=== PATIENT | male | born 1940 | race Caucasian/White ===

== ENCOUNTER → 2016-07-11 | Day surgery (SDC) | payer BC ==
[~2016-07-11] VITALS: Ht 176.5 cm; Wt 86.5 kg
[~2016-07-11] MED LIST: ASPI81TA28 PO; CHOL1000 PO; CLINDAMYCIN 600 MG/54 ML D5W IV SCH; CYAN100020 PO; EZET10TA47 PO; FENO145T26 PO; FENTANYL CITRATE INJ 50 MCG/1 ML 2 ML VIAL IV ONE; FENTANYL CITRATE INJ 50 MCG/1 ML 2 ML VIAL ONE; HYDR-5688 PO; LIDOCAINE HCL 1% 20 ML VIAL INJ ONE; LIDOCAINE HCL 1% 20 ML VIAL ONE; LPR25 PO; MIDAZOLAM HCL 1 MG/ML 2ML VIAL IV ONE; MIDAZOLAM HCL 1 MG/ML 2ML VIAL ONE; OMEG10007 PO; SODIUM CHLORIDE 0.9% 1000ML 1,000 ML IV SCH; TAMS0.4C38 PO
[2016-07-11 06:43] VITALS: BP 146/68; PULSE 54; TEMP 37; O2SAT 96; Ht 176.5 cm; Wt 86.5 kg
[2016-07-11 07:34] LABS: CREATININE 1.2 mg/dl (0.60-1.40)
--- NOTE | 2016-07-11 07:38 | Procedure Note ---
Pre-Mod Sedation Assessment General Date of Moderate Sedation: Jul 11, 2016. Vital Signs: Vital Signs Past 12 Hours Date Time Temp Pulse Resp B/P Pulse Ox O2 Delivery O2 Flow Rate FiO2 07/11/16 06:43 37 54 20 146/68 96 Room Air Pre-Sedation Airway Assessment Smoking Status: Former Smoker Mallampati Classification: Class I ASA Classification: Class II Notes The planned sedation has been discussed with the patient and consent obtained. I have identified the patient, determined the appropriateness of sedation and have assessed the patient immediately prior to the procedure. All medicine(s) and interventions are by my order.
--- NOTE | 2016-07-11 07:38 | History and Physical ---
History & Physical CC: Post infusaport HPI: Mr. 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 The patient states that he never had any problems or concerns with the port and only ever had to have this single one inserted. He states that after completing treatment they did continue to maintain the port by flushing it on a regular basis until last month. The patient states that he went to the surgical center to have his port removed by Dr. Dany Lombardi who unfortunately ran into significant complications of scarring which did not allow him to remove the port. Patient states he was then referred to us to have this port removed. The patient denies any complaints at this time including fevers, chills, headaches, nausea, vomiting, chest pain, shortness of breath, abdominal pain, rest pain, claudication, healing wounds or ulcers. He does state having some neuropathy particularly in his right leg from his old bone marrow harvesting. ALLERGIES: LIPITOR, PENICILLIN, SPIRONOLACTONE AND TRILIPIX. HOME MEDICATIONS: Reconciled in the chart and include the following: Aspirin 81 mg, Centrum Silver, fenofibrate 145 mg, fish oil ultra 1000 mg, metoprolol, tamsulosin 0.4 mg, vitamin D3 1000 units, Voltaren 1% topical gel and Zetia 10 mg. PAST MEDICAL HISTORY: Arthritis, BPH, coronary artery disease, gastroesophageal reflux, testicular cancer, hypercholesterolemia, hypertension, peripheral neuropathy, TIA, vertigo, vitamin B deficiency, vitamin D deficiency and non-Hodgkin's lymphoma. PAST SURGICAL HISTORY: Cataract surgery, left orchiectomy, axillary lymph node removal, tonsillectomy and left total knee arthroplasty. FAMILY HISTORY: Positive for diabetes mellitus, heart attack, heart disease and prostate carcinoma. SOCIAL HISTORY: Positive for a past history of tobacco use. Patient quit smoking in 1980. He does continue to have an occasional alcoholic beverage approximately 6 per week. REVIEW OF SYSTEMS: Negative for fatigue, fevers, sweats, weight loss, exercise intolerance, abnormal moles or rashes, vision changes, photophobia, ear pain, sinus problems or sore throat, cough, shortness of breath, hemoptysis or wheezing, chest pain, palpitations, edema or syncope, abdominal pain, nausea, vomiting, diarrhea, constipation, dysuria, hematuria, muscle weakness, headaches , dizziness or seizures. He is positive for some occasional numbness and twinges of discomfort in his right leg. PHYSICAL EXAMINATION: Vital signs: Blood pressure 142/90 in the right arm, 150 /90 in the left arm, heart rate 63, O2 sat 98% on room air. The patient is 175 cm tall and weighs 87.7 kg. Constitutional: In general, patient is a mildly chronically ill-appearing elderly male in no acute distress. He ambulates slowly without assistance and is active, alert and oriented x4 with normal recent and remote memory. Head is normocephalic and atraumatic. Eyes are EOMI. ENT exam demonstrates no hearing loss, rhinorrhea or pharyngeal erythema. Neck is supple, nontender with midline trachea without masses or crepitus. Lung exam demonstrates no dyspnea. They are clear to auscultation bilaterally. Cardiovascular exam demonstrates a nondisplaced apical impulse with a regular rate and rhythm without murmurs, lifts, heaves, thrills or gallops. Peripheral pulses are full and equal in all extremities unless otherwise noted. They are normal in his carotid, brachial, radial and femoral pulses. Extremities: Distal pulses are +2. He has brisk capillary refill, no sign of distal ischemia. The patient demonstrates no bruits in his carotid, abdominal or femoral area. Abdomen is soft, nontender with normoactive bowel sounds in all 4 quadrants without guarding or rebound. There is no flank or CVA tenderness. Musculoskeletal exam demonstrates normal tone and strength for age. Bilateral upper extremities demonstrate no cyanosis, edema, clubbing, varicosities or ulcers. Bilateral lower extremities demonstrate no cyanosis, edema, clubbing, varicosities or ulcers. Neurologically, patient has grossly intact cranial nerves and grossly intact sensation. His left chest does demonstrate his Infusaport which is lateral and almost axillary in location. His previous attempt at removal incision is well-healed. There is no tenderness , swelling or discharge. Chest x-ray from 2014 was reviewed which shows the location of his catheter as being subclavicular. According to the op report from the placement which was in 2006, this was a left cephalic vein catheter placement. ASSESSMENT: History of non-Hodgkin's lymphoma. Post port insertion PLAN: Patient admitted for removal of his infusaport. The procedure, risks, benefits and alternatives to it were discussed with the patient. He expressed understanding and agreement to proceed.
--- NOTE | 2016-07-11 08:49 | Procedure Note ---
Post-Moderate Sedation Plan General Date of Moderate Sedation Jul 11, 2016. Vital Signs: Vital Signs Past 12 Hours Date Time Temp Pulse Resp B/P Pulse Ox O2 Delivery O2 Flow Rate FiO2 07/11/16 06:43 37 54 20 146/68 96 Room Air Review - Discharge Plan Post Moderate Sedation Plan: On clinical assessment, the patient appears to have tolerated the conscious sedation without complications. Patient is recovering as anticipated. Patient will continue to be monitored by nursing and may be discharged when conscious sedation discharge criteria are met.
--- NOTE | 2016-07-11 08:53 | [facility] Post Operative Brief Note ---
Immediate Operative Summary Operative Date Jul 11, 2016. Pre-Operative Diagnosis post infusaport Post-Operative Diagnosis same Procedure(s) Performed Removal of Infusaport, Moderate Concious Sedation [id number] Thapa Wood Scaler Surgeon(s) none Estimated Blood Loss 10 ml Findings Entire port and catheter removed Specimens A. explanted infusaport Anesthesia Local with moderate sedation Complication(s) None Disposition
--- NOTE | 2016-07-11 08:59 | Discharge Instructions ---
Discharge Instructions Visit Reason for Visit: Non-Hodgkin's Lymphoma Discharge Discharge Diagnosis / Problem: Post infusaport Discharge Goals Goal(s): Therapeutic intervention Activity Recommendations Activity Limitations: per Instructions/Follow-up section Anesthesia . Post Anesthesia Instructions: If you have had General Anesthesia or IV Sedation: * Do not drive today. * Resume driving when surgeon permits. * Do not make important decisions or sign legal documents today. * Call surgeon for: 1. Temperature elevations greater than 101 degrees F. 2. Uncontrollable pain. 3. Excessive bleeding. 4. Persistent nausea and vomiting. 5. Medication intolerance (nausea, vomiting or rash). * For nausea and vomiting use only clear liquids such as: tea, soda, bouillon until nausea subsides, then gradually increase diet as tolerated. * If you have any concerns or questions, call your surgeon's office. If physician is unavailable and it is an emergency, call 911 or go to the nearest emergency room. . Instructions / Follow-Up Instructions / Follow-Up Call [phone] to schedule a follow up appointment if one not already scheduled. ACTIVITY RECOMMENDATIONS: See Above SPECIAL CARE INSTRUCTIONS: Call your doctor if: * Temperature above 101 degrees * Pain not relieved by pain medicine ordered * There is increased drainage or redness from any incision * You have any unanswered questions or concerns. Diet Recommendations Recommended Home Diet: resume previous diet Procedures Procedures Performed: Removal of Infusaport, Moderate Concious Sedation [id number] Pending Studies Studies pending at discharge: no Medical Emergencies . Who to Call and When: Medical Emergencies: If at any time you feel your situation is an emergency, please call 911 immediately. . Non-Emergent Contact Non-Emergency issues call your: Surgeon . . "Provider Documentation" section prepared by Santosh Thapa.
[2016-07-11 09:05] VITALS: BP 117/69; PULSE 55; TEMP 36.6; O2SAT 96
[2016-07-11 09:35] VITALS: BP 110/59; PULSE 63; TEMP 36.4; O2SAT 95
--- NOTE | 2016-07-15 08:08 | DIAGNOSTIC IMAGING REPORT ---
DATE OF PROCEDURE: 07/11/2016 DATE OF PROCEDURE: 07/11/2016. PREOPERATIVE DIAGNOSIS: Post Infusaport insertion for Hodgkins. POSTOPERATIVE DIAGNOSIS: Same. PROCEDURE: 1. Removal of Infusaport. 2. Conscious sedation 34 minutes total, start time 0808 to 0842. SURGEON: Dr. Thapa. ANESTHETIC: Local with moderate conscious sedation. PROCEDURE INDICATIONS: The patient is a 76-year-old gentleman who had an Infusaport placed approximately 10 years prior to this. An attempt was made to remove it by another physician a few weeks earlier. It could not be removed and the patient was referred here for removal of the port. We discussed the options of open removal with combination of endovascular removal. He understood the risks, options and benefits and agreed to have this procedure. The patient was taken to the angio suite and placed in supine position. After the area was prepped and draped in a sterile manner, local anesthetic was administered in line of the old incision. The old incision was opened. The port was identified. The port well was freed up. The catheter did have a lot of resistance and would not slide out. We did do a counterincision at the subclavian just below in the infraclavicular area, being that it was a subclavian entrance. This was carried down to between the muscle bellies until the catheter was found. Catheter was then pulled up into the wound. The fibrin sheath around it was incised. Gentle traction was then applied and the catheter slid out fairly easily. Pressure was applied to the puncture site along with Joyce for the wound. The rest of the catheter and port were removed from the original incision. After adequate hemostasis was obtained in both wounds, both wounds were closed with running 3-0 Vicryl for the subcutaneous layer and running 4-0 subcuticular suture for the skin edges. Dermabond was used for a dressing. The patient left the angio suite in good condition and tolerated the procedure well.
== END | disposition home or self-care (01) ==
LOC: C.ACU 06:04
PROVIDERS: ATTEND Surgery Vascular Surgery
DX: C85.80 Other specified types of non-Hodgkin lymphoma, unspecified site (principal); I25.10 Atherosclerotic heart disease of native coronary artery without angina pectoris; K21.9 Gastro-esophageal reflux disease without esophagitis; Z85.47 Personal history of malignant neoplasm of testis; E78.00 Pure hypercholesterolemia, unspecified; I10 Essential (primary) hypertension; Z86.73 Personal history of transient ischemic attack (TIA), and cerebral infarction without residual deficits; N40.0 Benign prostatic hyperplasia without lower urinary tract symptoms; Z98.49 Cataract extraction status, unspecified eye; Z88.0 Allergy status to penicillin; Z98.890 Other specified postprocedural states; Z90.89 Acquired absence of other organs; Z96.652 Presence of left artificial knee joint; Z87.891 Personal history of nicotine dependence; Z83.3 Family history of diabetes mellitus; Z82.49 Family history of ischemic heart disease and other diseases of the circulatory system; Z80.42 Family history of malignant neoplasm of prostate

== ENCOUNTER → 2017-04-27 | Outpatient (CLI) | payer BC ==
[~2017-04-27] MED LIST changes: -CLINDAMYCIN 600 MG/54 ML D5W IV SCH; -FENTANYL CITRATE INJ 50 MCG/1 ML 2 ML VIAL IV ONE; -FENTANYL CITRATE INJ 50 MCG/1 ML 2 ML VIAL ONE; -LIDOCAINE HCL 1% 20 ML VIAL INJ ONE; -LIDOCAINE HCL 1% 20 ML VIAL ONE; -MIDAZOLAM HCL 1 MG/ML 2ML VIAL IV ONE; -MIDAZOLAM HCL 1 MG/ML 2ML VIAL ONE; -SODIUM CHLORIDE 0.9% 1000ML 1,000 ML IV SCH
[2017-04-27 11:02] LABS: BASO ABS # 0.05 K/uL (0-0.2); COMPLETE YES; EOS % 2.3 %; HEMATOCRIT 40.9 % (42-52); IG% 0.2 %; LYMPH % 40.7 %; LYMPH ABS # 2.11 K/uL (1.2-3.4); MEAN CELL VOLUME 97.1 fL (80-100); MEAN PLATELET VOLUME 11.1 fL (7.4-10.4); MONO % 12.7 %; NEUT % 43.1 %; PLATELET COUNT 159 K/uL (130-400); RED BLOOD COUNT 4.21 M/uL (4.7-6.1); WHITE BLOOD COUNT 5.18 K/uL (4.8-10.8)
[2017-04-27 11:25] LABS: ALT/SGPT 26 U/L (12-78); BLOOD UREA NITROGEN 23 mg/dl (7-18); BUN/CREATININE RATIO 20.3 (10-20); CALCIUM 9.4 mg/dl (8.5-10.1); CARBON DIOXIDE 27 mmol/L (21-32); CHLORIDE 108 mmol/L (98-107); CREATININE 1.15 mg/dl (0.60-1.40); GLUCOSE 100 mg/dl (70-99); POTASSIUM 4.8 mmol/L (3.5-5.1); SODIUM 142 mmol/L (136-145)
[2017-04-27 11:28] LABS: CHOLESTEROL 169 mg/dl (0-200); CHOLESTEROL/HDL RATIO 3.1; HDL CHOLESTEROL 55 mg/dl; LDL CHOLESTEROL CALCULATED 57 mg/dl; TRIGLYCERIDES 284 mg/dl (0-150); VERY LOW DENSITY LIPOPROT CALC 57 mg/dl
== END | disposition home or self-care (01) ==
LOC: C.LABBC 07:37
PROVIDERS: ATTEND Family Medicine
DX: I10 Essential (primary) hypertension (principal); E78.00 Pure hypercholesterolemia, unspecified; C85.90 Non-Hodgkin lymphoma, unspecified, unspecified site

== ENCOUNTER → 2017-11-19 | Outpatient (CLI) | payer BC ==
[2017-11-19 11:43] LABS: ALT/SGPT 23 U/L (12-78); BLOOD UREA NITROGEN 25 mg/dl (7-18); CALCIUM 9.2 mg/dl (8.5-10.1); CARBON DIOXIDE 29 mmol/L (21-32); CHOLESTEROL 166 mg/dl (0-200); CREATININE 1.28 mg/dl (0.60-1.40); GLUCOSE 100 mg/dl (70-99); LDL CHOLESTEROL CALCULATED 57 mg/dl; POTASSIUM 4.1 mmol/L (3.5-5.1); SODIUM 137 mmol/L (136-145)
== END | disposition home or self-care (01) ==
LOC: C.LABBC 07:35
PROVIDERS: ATTEND Family Medicine
DX: I25.10 Atherosclerotic heart disease of native coronary artery without angina pectoris (principal); I10 Essential (primary) hypertension; E78.00 Pure hypercholesterolemia, unspecified

== ENCOUNTER 2022-03-10 14:24 | Inpatient (IN) ==
[2022-03-10] MEDS ORDERED: CEFEPIME 2,000 MG/20 ML VIAL IV STA (15:05)
--- NOTE | 2022-03-10 15:08 | Emergency Department Note ---
History of Present Illness General Chief complaint: Respiratory Problems Stated complaint: PNEUMONIA/SOB Time Seen by Provider: 03/10/22 14:54 History of Present Illness Maximum Pain Intensity: 0 81-year-old male presents to the ED with a chief complaint of shortness of breath that is worse with exertion. He states that he was diagnosed with a viral pneumonia on . He was started on a Z-Manfred and finished his last dose today. Denies any sick contacts. He states that he does not use home oxygen. He has monitored his pulse ox at home and has been at the lowest around 86 and high of 91. The patient states that his was recently diagnosed with COVID but he tested negative. The patient denies any chest pains or fevers or cough. At the onset of his original symptoms, he was having exertional dyspnea, fatigue and minimal cough. Home Medications Medication Instructions Recorded Confirmed Type hydrocortisone 2.5 % topical cream 1 applic PA DAILY PRN itching #30 11/19/20 03/10/22 Rx with perineal applicator grams (Proctosol HC) multivitamin 1 tab PO DAILY 11/19/20 03/10/22 History metoprolol tartrate 25 mg tablet See Rx Instructions PO BID #270 10/25/21 03/10/22 Rx tabs fenofibrate nanocrystallized 145 145 mg PO DAILY #90 tabs 11/13/21 03/10/22 Rx mg tablet tamsulosin 0.4 mg capsule 0.4 mg PO QPM #90 caps 12/06/21 03/10/22 Rx loratadine 10 mg tablet (Claritin) 10 mg PO DAILY #30 tabs 12/10/21 03/10/22 Rx lisinopril 10 mg tablet 10 mg PO DAILY #90 tabs 01/22/22 03/10/22 Rx azithromycin 250 mg tablet See Rx Instructions PO .COMPLEX #6 03/06/22 03/10/22 Rx tabs ezetimibe 10 mg tablet 10 mg PO DAILY 03/10/22 03/10/22 History Allergies Allergy/AdvReac Type Severity Reaction Status Date / Time house dust mite Allergy Unknown Sneezing Verified 03/10/22 16:53 atorvastatin AdvReac Intermediate MUSCLE Verified 03/10/22 16:53 CRAMPS choline fenofibrate AdvReac Intermediate MUSCLE Verified 03/10/22 16:53 CRAMPS spironolactone AdvReac Intermediate MUSCLE Verified 03/10/22 16:53 CRAMPS Penicillins AdvReac Unknown AVOIDS Verified 03/10/22 16:53 HIS FATHER HIGHLY ALLERGIC pollen Allergy Unknown Sneezing Uncoded 03/10/22 16:53 Past Med/Surg History Medical History Aldosteronism Arthritis Benign paroxysmal positional vertigo Benign prostatic hyperplasia with urinary obstruction Bilateral primary osteoarthritis of knee Bursitis of right hip Cor athrscl-uns vessel Degenerative arthritis of left knee Esophageal reflux External hemorrhoids without mention of complication GERD (gastroesophageal reflux disease) History of testicular cancer HTN, goal below 140/90 Hyperlipidemia Impaired fasting glucose Lumbar spondylosis Non Hodgkin's lymphoma Peripheral neuropathy Sensorineural hearing loss (SNHL) of both ears Sensorineural hearing loss (SNHL) of both ears TIA (transient ischemic attack) Vitamin B12 deficiency Vitamin D deficiency Surgical History History of cataract surgery History of left knee replacement History of orchiectomy, unilateral left History of tonsillectomy History of total knee arthroplasty (08/14/15) left History of vasectomy S/P skin cancer resection Family History Mother Diabetes Heart disease Hypertension Father Prostate cancer Other Cancer Family history non-contributory No family history of allergies No family history of bleeding disorder Denies family history of Ovarian cancer Hearing loss Myocardial infarction Breast cancer Colorectal cancer Stroke Asthma Social History Smoking Status: Former smoker Tobacco Type: Cigarettes Age Quit Using Tobacco: 52; packs per day: 1; Years Smoked: 7; Second Hand Exposure: No; Hx Alcohol Use: Yes Alcohol type: hard liquor Alcohol Intake Frequency: Monthly or Less Hx Substance Use: No Preferred Language: Tongan Communication Ability: Effective Visual Impairment: No Limitations Hearing Ability: Use of Hearing Aid marital status: Current Living Situation: Spouse current occupational status: retired Feels Safe at Home: Yes Childhood Exposure to Second-Hand Smoke: Yes caffeine: Yes during the past year weight has: remained stable Dental Care, Regularly: Yes Physical Activity Frequency: 3-4 Times per Week Seatbelt Use: always Sunscreen Use: Yes Assistive Devices: Glasses and Hearing Aid - Bilateral Review of Systems A total of 10 systems reviewed and were otherwise negative Physical Exam Vital Signs Vital Signs - 24 hr 03/10/22 14:39 03/10/22 14:52 03/10/22 14:24 Temperature 36.1 C L Temperature Source Temporal Artery Scan Pulse Rate 72 Pulse Rate [Apical] Pulse Rhythm Pulse Rhythm [Apical] Pulse Strength [Apical] Respiratory Rate 24 Respiratory Effort / Characteristics Labored Non-Labored Spontaneous Respiratory Depth Normal Respiratory Pattern Regular Blood Pressure 109/70 Blood Pressure [Left Arm] Blood Pressure Mean 83 Blood Pressure Mean [Left Arm] Blood Pressure Position [Left Arm] Pulse Oximetry 87 L 79 L Oxygen Delivery Method Room Air Room Air Nasal Cannula Oxygen Flow Rate 2 Sepsis Recent Fever Within 48 Hours No Sepsis New/Unexplained Change in Mental Status N/A Sepsis Action Taken by Nursing No Action Required Oxygen Flow Rate - Titration Pulse Oximetry Post Tiitration 03/10/22 14:24 03/10/22 14:24 03/10/22 15:05 Temperature Temperature Source Pulse Rate Pulse Rate [Apical] 69 Pulse Rhythm Pulse Rhythm [Apical] Regular Pulse Strength [Apical] Normal Respiratory Rate 22 24 Respiratory Effort / Characteristics Non-Labored Non-Labored Spontaneous Respiratory Depth Normal Respiratory Pattern Regular Blood Pressure Blood Pressure [Left Arm] 110/67 Blood Pressure Mean Blood Pressure Mean [Left Arm] 81 Blood Pressure Position [Left Arm] Lying Pulse Oximetry 79 L 95 95 Oxygen Delivery Method Room Air Nasal Cannula Room Air Nasal Cannula Oxygen Flow Rate 0 2 2 Sepsis Recent Fever Within 48 Hours Sepsis New/Unexplained Change in Mental Status Sepsis Action Taken by Nursing Oxygen Flow Rate - Titration 2 Pulse Oximetry Post Tiitration 95 03/10/22 15:05 Temperature Temperature Source Pulse Rate 66 Pulse Rate [Apical] Pulse Rhythm Regular Pulse Rhythm [Apical] Pulse Strength [Apical] Respiratory Rate 22 Respiratory Effort / Characteristics Respiratory Depth Respiratory Pattern Blood Pressure Blood Pressure [Left Arm] Blood Pressure Mean Blood Pressure Mean [Left Arm] Blood Pressure Position [Left Arm] Pulse Oximetry 95 Oxygen Delivery Method Nasal Cannula Oxygen Flow Rate 2 Sepsis Recent Fever Within 48 Hours Sepsis New/Unexplained Change in Mental Status Sepsis Action Taken by Nursing Oxygen Flow Rate - Titration Pulse Oximetry Post Tiitration CONSTITUTIONAL/VITAL SIGNS: Reviewed / noted above. GENERAL: Non-toxic in appearance. INTEGUMENTARY: Warm, dry, and Babbie. HEAD: Normocephalic. EYES: without scleral icterus or trauma. ENT/OROPHARYNX: clear and moist. LYMPHADENOPATHY/NECK: Is supple without lymphadenopathy or meningismus. RESPIRATORY: Clear to auscultation bilaterally. No increased work of breathing. CARDIOVASCULAR: Regular rate and rhythm. GI/ABDOMEN: Soft and nontender. No organomegaly or pulsatile mass. EXTREMITIES: Warm and well perfused. BACK: No CVA tenderness. NEUROLOGICAL: Intact without focal deficits. PSYCHIATRIC: normal affect. MUSCULOSKELETAL: Normally developed with good muscle tone. TRIAGE NURSING DOCUMENTATION REVIEWED. Course Administered Medications Discontinued Medications Cefepime HCl (Maxipime) 2,000 mg in 20 mls @ 5 mls/min IV NOW STA; Protocol Stop: 03/10/22 15:08 Last Admin: 03/10/22 15:26 Dose: 5 mls/min Documented By: ROSEMARIE Ioversol (Optiray 300 500ml) 118 ml IV ONCE ONE Stop: 03/10/22 17:04 Last Admin: 03/10/22 17:05 Dose: 118 ml Documented By: [facility] Medical Decision Making Differential Diagnosis The differential was considered includes acute myocardial infarction, acute coronary syndrome, myocarditis, pericarditis, pericardial effusions /tamponad, esophageal perforation, pulmonary embolism, pneumonia, pneumothorax, cardiomyopathy, congestive heart, anemia , COPD/asthma exacerbation. Medical Records Attestation: I reviewed the patient's medical records. Home Medications Current Medication List: was personally reviewed by me Laboratory Data Attestation: I reviewed the patient's lab results. Result diagrams: 03/10/22 15:50 03/10/22 15:50 Lab Results 03/10/22 03/10/22 03/10/22 Range/Units 15:50 15:50 15:50 WBC 6.44 (4.8-10.8) K/ul RBC 4.01 L (4.63-6.08) M/uL Hgb 12.9 L (14.0-18.0) g/dl Hct 38.6 L (40.1-51.0) % MCV 96.3 (80.0-100.0) fL MCH 32.2 (25.0-34.0) pg MCHC 33.4 (32.0-36.0) g/dL RDW Std Deviation 47.6 H (36.4-46.3) fL RDW Coeff of Jeffrey 13.2 (11.5-14.5) % Plt Count 236 (130-400) K/uL MPV 10.4 (9.4-12.4) fL Immature Gran % (Auto) 0.3 % Neut % (Auto) 54.8 % Lymph % (Auto) 26.4 % Potter % (Auto) 15.4 % Eos % (Auto) 2.2 % Baso % (Auto) 0.9 % Neut # (Auto) 3.53 (1.4-6.5) K/uL Lymph # (Auto) 1.70 (1.2-3.4) K/uL Potter # (Auto) 0.99 H (0.24-0.82) K/uL Eos # (Auto) 0.14 (0-0.50) K/uL Baso # (Auto) 0.06 (0-0.2) K/uL Immature Gran # (Auto) 0.02 (0.00-0.02) K/uL PT 11.2 (9.0-12.0) Seconds INR 1.1 (0.9-1.1) APTT 27.4 (21.0-31.0) Seconds PTT Ratio 1.0 D-Dimer 740 H* (0-500) ug/L FEU Sodium 136 (136-145) mmol/L Potassium 4.1 (3.5-5.1) mmol/L Chloride 104 (98-107) mmol/L Carbon Dioxide 24 (21-32) mmol/L Anion Gap 8 (3-11) BUN 23 (6-23) mg/dl Creatinine 1.38 (0.6-1.4) mg/dl Est Cr Clr Drug Dosing 42.7 ml/min Est GFR ( Amer) 55.6 ml/min Est GFR (Non-Af Amer) 47.9 ml/min BUN/Creatinine Ratio 16.7 (10-20) Glucose 96 (70-99(Fasting)) mg/dl Lactate (0.4-2.0) mmol/L Calcium 9.5 (8.5-10.1) mg/dl Magnesium 2.0 (1.7-2.4) mg/dl Total Bilirubin 0.4 (0.2-1.0) mg/dl AST 19 (13-39) U/L ALT 12 (7-52) U/L Alkaline Phosphatase 33 L (34-104) U/L Troponin I High Sens 6.4 (0-20) pg/ml Total Protein 6.8 (6.0-8.3) gm/dl Albumin 3.6 (3.4-5.0) gm/dl Globulin 3.2 (2.5-4.0) gm/dl Albumin/Globulin Ratio 1.1 (0.9-2) Adenovirus (PCR) (NotDetected) B. pertussis DNA (PCR) (NotDetected) B.parapertussis DNA PCR (NotDetected) C. pneumoniae DNA (PCR) (NotDetected) Coronavirus OC43 (PCR) (NotDetected) Coronavirus HKU1 (PCR) (NotDetected) Coronavirus 229E (PCR) (NotDetected) SARS-CoV-2 (PCR) (NotDetected) Coronavirus NL63 (PCR) (NotDetected) Human Metapneumovir PCR (NotDetected) Influenza Type A (PCR) (NotDetected) Influenza Type B (PCR) (NotDetected) M. pneumoniae (PCR) (NotDetected) Parainfluenza 1 (PCR) (NotDetected) Parainfluenza 2 (PCR) (NotDetected) Parainfluenza 3 (PCR) (NotDetected) Parainfluenza 4 (PCR) (NotDetected) RSV (PCR) (NotDetected) Entero/Rhino (PCR) (NotDetected) 03/10/22 03/10/22 Range/Units 15:50 15:50 WBC (4.8-10.8) K/ul RBC (4.63-6.08) M/uL Hgb (14.0-18.0) g/dl Hct (40.1-51.0) % MCV (80.0-100.0) fL MCH (25.0-34.0) pg MCHC (32.0-36.0) g/dL RDW Std Deviation (36.4-46.3) fL RDW Coeff of Jeffrey (11.5-14.5) % Plt Count (130-400) K/uL MPV (9.4-12.4) fL Immature Gran % (Auto) % Neut % (Auto) % Lymph % (Auto) % Potter % (Auto) % Eos % (Auto) % Baso % (Auto) % Neut # (Auto) (1.4-6.5) K/uL Lymph # (Auto) (1.2-3.4) K/uL Potter # (Auto) (0.24-0.82) K/uL Eos # (Auto) (0-0.50) K/uL Baso # (Auto) (0-0.2) K/uL Immature Gran # (Auto) (0.00-0.02) K/uL PT (9.0-12.0) Seconds INR (0.9-1.1) APTT (21.0-31.0) Seconds PTT Ratio D-Dimer (0-500) ug/L FEU Sodium (136-145) mmol/L Potassium (3.5-5.1) mmol/L Chloride (98-107) mmol/L Carbon Dioxide (21-32) mmol/L Anion Gap (3-11) BUN (6-23) mg/dl Creatinine (0.6-1.4) mg/dl Est Cr Clr Drug Dosing ml/min Est GFR ( Amer) ml/min Est GFR (Non-Af Amer) ml/min BUN/Creatinine Ratio (10-20) Glucose (70-99(Fasting)) mg/dl Lactate 1.1 (0.4-2.0) mmol/L Calcium (8.5-10.1) mg/dl Magnesium (1.7-2.4) mg/dl Total Bilirubin (0.2-1.0) mg/dl AST (13-39) U/L ALT (7-52) U/L Alkaline Phosphatase (34-104) U/L Troponin I High Sens (0-20) pg/ml Total Protein (6.0-8.3) gm/dl Albumin (3.4-5.0) gm/dl Globulin (2.5-4.0) gm/dl Albumin/Globulin Ratio (0.9-2) Adenovirus (PCR) Not Detected (NotDetected) B. pertussis DNA (PCR) Not Detected (NotDetected) B.parapertussis DNA PCR Not Detected (NotDetected) C. pneumoniae DNA (PCR) Not Detected (NotDetected) Coronavirus OC43 (PCR) Not Detected (NotDetected) Coronavirus HKU1 (PCR) Not Detected (NotDetected) Coronavirus 229E (PCR) Not Detected (NotDetected) SARS-CoV-2 (PCR) Not Detected (NotDetected) Coronavirus NL63 (PCR) Not Detected (NotDetected) Human Metapneumovir PCR Not Detected (NotDetected) Influenza Type A (PCR) Not Detected (NotDetected) Influenza Type B (PCR) Not Detected (NotDetected) M. pneumoniae (PCR) Not Detected (NotDetected) Parainfluenza 1 (PCR) Not Detected (NotDetected) Parainfluenza 2 (PCR) Not Detected (NotDetected) Parainfluenza 3 (PCR) Not Detected (NotDetected) Parainfluenza 4 (PCR) Not Detected (NotDetected) RSV (PCR) Not Detected (NotDetected) Entero/Rhino (PCR) Not Detected (NotDetected) Imaging Data Radiologist's Impression: Chest CTA 03/10/22 15:05 CT ANGIOGRAPHY OF THE CHEST, PULMONARY EMBOLUS PROTOCOL CLINICAL HISTORY: Dyspnea. Evaluate for pulmonary embolus. COMPARISON STUDY: Chest CT January 03, 2011. Chest radiograph performed earlier today. TECHNIQUE: Following IV administration of 118 mL of Optiray, helical axial images of the chest were obtained utilizing the pulmonary embolus protocol. Maximal intensity projections and sagittal and coronal reformats were viewed on an independent 3D workstation. IV contrast was administered without complication. Automated exposure control was utilized for the study. A dose lowering technique was utilized adhering to the principles of ALARA. CT DOSE: 499.39 mGy.cm FINDINGS: No pulmonary emboli are identified. Size of the heart is normal. There is no pericardial effusion. No enlarged thoracic lymph nodes are present. Note is made of moderate upper lobe predominant ground glass opacities with interlobular septal thickening. Central airways are patent. There is no cavitation. No pneumothorax or pleural effusion is present. No acute rib or thoracic spine fracture is identified. Visualized portions of the upper abdomen are unremarkable. There is a small hiatal hernia. IMPRESSION: 1. No pulmonary emboli identified. 2. Moderate upper lobe predominant groundglass opacities with interlobular septal thickening. These findings are nonspecific however favor an infectious process such as viral pneumonia. 3. Small hiatal hernia. ACT 112: Negative or not required by law. Electronically signed by: Vincent Staples M.D. 03/10/2022 5:20 PM Chest X-Ray 03/10/22 15:05 XR chest 1V portable CLINICAL HISTORY: SEPSIS COMPARISON STUDY: Chest radiograph March 06, 2022. Chest radiograph August 25, 2018. Chest CT January 03, 2011. FINDINGS: Lung volumes are normal. No pneumothorax or pleural effusion is present. Interstitial thickening and patchy bilateral airspace opacities are n oted. Findings have slightly progressed since prior exam. Cardiomegaly is noted. No evidence for pulmonary edema. IMPRESSION: Interstitial thickening and patchy bilateral airspace opacities which have minimally progressed. The findings favor an infectious process. Chronic interstitial lung disease could appear similar. ACT 112: Negative or not required by law. Electronically signed by: Vincent Staples M.D. 03/10/2022 4:17 PM ECG Data Attestation: I personally reviewed and interpreted this ECG as follows: Additional Comments: Twelve-lead EKG: Per my interpretation shows a sinus rhythm at a rate of 67. No ST elevation. No PVCs. Normal QTC. MDM Narrative 81-year-old male presents with shortness of breath that is worse with exertion. He has had the symptoms for over a week but worsening. Finished a Z-Manfred today without improvement. has COVID. Oxygen saturations here 87% at rest, 79% with minimal exertion. Afebrile. Lungs are clear. No distress on my exam. CBC was unremarkable. D-dimer was mildly elevated. Metabolic panel was unremarkable. Troponin was negative. Lactic acid was negative. EKG shows a normal sinus rhythm. Chest x-ray shows some bilateral patchy opacities and a CT scan shows moderate upper lobe pneumonia likely viral. No PEs. [employer] viral panel was negative. The patient was treated empirically with some IV antibiotics in the form of cefepime. He also was given IV Decadron. He will be seen by the hospitalist for further evaluation and care. Impression & Plan Pneumonia of both upper lobes, Hypoxia Discharge Plan Visit Data Chief Complaint: Respiratory Problems Stated Complaint: PNEUMONIA/SOB ED Provider: Addison Bosch Discharge Problem: Pneumonia of both upper lobes, Hypoxia Patient Disposition: Being Evaluated by Hospitalist Forms Stand Alone Forms: My [facility] Prescriptions Prescriptions: No Action metoprolol tartrate 25 mg tablet See Rx Instructions PO BID Qty: 270 1RF Rx Instructions: Take 1 pill in am and 2 pills in pm PO; fenofibrate nanocrystallized 145 mg tablet 145 mg PO DAILY Qty: 90 1RF tamsulosin 0.4 mg capsule 0.4 mg PO QPM Qty: 90 1RF lisinopril 10 mg tablet 10 mg PO DAILY Qty: 90 2RF azithromycin 250 mg tablet See Rx Instructions PO .COMPLEX Qty: 6 0RF Rx Instructions: For 250 mg dose pack: take 500 mg today (day 1), then 250 mg for 4 days (days 2-5) PO loratadine [Claritin] 10 mg tablet 10 mg PO DAILY Qty: 30 0RF multivitamin Tablet 1 tab PO DAILY hydrocortisone [Proctosol HC] 2.5 % cream with perineal applicator 1 applic PA DAILY PRN (Reason: itching) Qty: 30 1RF Rx Instructions: use sparingly, do not use for longer than 1 week ezetimibe 10 mg tablet 10 mg PO DAILY Rx Instructions: TAKE 1 TABLET BY MOUTH EVERY DAY Referrals Referrals: Jayda Fernando MD [Primary Care Provider] -
[2022-03-10 16:02] LABS: Basophils # (auto) 0.06 K/uL (0-0.2); Basophils % (auto) 0.9 %; Eosinophils # (auto) 0.14 K/uL (0-0.50); Eosinophils % (auto) 2.2 %; Hematocrit (blood only) 38.6 % (40.1-51.0); Hemoglobin 12.9 g/dl (14.0-18.0); Immature Granulocytes # (auto) 0.02 K/uL (0.00-0.02); Immature Granulocytes % (auto) 0.3 %; Lymphocytes % (auto) 26.4 %; Mean Corpuscular Hemoglobin 32.2 pg (25.0-34.0); Mean Corpuscular Hgb Conc 33.4 g/dL (32.0-36.0); Mean Corpuscular Volume 96.3 fL (80.0-100.0); Mean Platelet Volume 10.4 fL (9.4-12.4); Monocytes # (auto) 0.99 K/uL (0.24-0.82); Monocytes % (auto) 15.4 %; Neutrophils # (auto) 3.53 K/uL (1.4-6.5); Neutrophils % (auto) 54.8 %; Platelet Count 236 K/uL (130-400); RDW Coefficient of Variation 13.2 % (11.5-14.5); RDW Standard Deviation 47.6 fL (36.4-46.3); Red Blood Count 4.01 M/uL (4.63-6.08); White Blood Count 6.44 K/ul (4.8-10.8)
[2022-03-10 16:18] LABS: INR 1.1 (0.9-1.1); Partial Thromboplastin Time 27.4 Seconds (21.0-31.0); Prothrombin Time 11.2 Seconds (9.0-12.0)
--- NOTE | 2022-03-10 16:18 | XRay Report ---
XR chest 1V portable CLINICAL HISTORY: SEPSIS COMPARISON STUDY: Chest radiograph March 06, 2022. Chest radiograph August 25, 2018. Chest CT J riley 2010. FINDINGS: Lung volumes are normal. No pneumothorax or pleural effusion is present. Interstitial thick ening and patchy bilateral airspace opacities are noted. Findings have slightly progressed since prio r exam. Cardiomegaly is noted. No evidence for pulmonary edema. IMPRESSION: Interstitial thickening and patchy bilateral airspace opacities which have minimally pro gressed. The findings favor an infectious process. Chronic interstitial lung disease could appear sim ilar. ACT 112: Negative or not required by law. Electronically signed by: Vincent Staples M.D. 03/10/2022 4:17 PM
[2022-03-10 16:31] LABS: D Dimer 740 ug/L FEU (0-500)
[2022-03-10 16:32] LABS: Albumin Globulin Ratio 1.1 (0.9-2); Albumin Level 3.6 gm/dl (3.4-5.0); BUN Creatinine Ratio 16.7 (10-20); Bilirubin,Total 0.4 mg/dl (0.2-1.0); Calcium 9.5 mg/dl (8.5-10.1); Creatinine Clr Calc Pharmacy 42.7 ml/min; Est GFR (African American) 55.6 ml/min; Est GFR (Non-African American) 47.9 ml/min; Globulin 3.2 gm/dl (2.5-4.0); Potassium 4.1 mmol/L (3.5-5.1); Total Protein 6.8 gm/dl (6.0-8.3)
[2022-03-10 16:37] LABS: Troponin I High Sensitivity 6.4 pg/ml (0-20)
[2022-03-10 16:52] LABS: Adenovirus PCR Not Detected (NotDetected); Bordetella parapertussis PCR Not Detected (NotDetected); Bordetella pertussis PCR Not Detected (NotDetected); Chlamydia pneumoniae PCR Not Detected (NotDetected); Coronavirus 229E PCR Not Detected (NotDetected); Coronavirus CoV-2 (COVID19)PCR Not Detected (NotDetected); Coronavirus HKU1 PCR Not Detected (NotDetected); Coronavirus NL63 PCR Not Detected (NotDetected); Coronavirus OC43PCR Not Detected (NotDetected); Human Metapneumovirus PCR Not Detected (NotDetected); Influenza A PCR Not Detected (NotDetected); Influenza B PCR Not Detected (NotDetected); Mycoplasma pneumoniae PCR Not Detected (NotDetected); Parainfluenza Virus 1 PCR Not Detected (NotDetected); Parainfluenza Virus 2 PCR Not Detected (NotDetected); Parainfluenza Virus 3 PCR Not Detected (NotDetected); Parainfluenza Virus 4 PCR Not Detected (NotDetected); Respiratory Syncytial VirusPCR Not Detected (NotDetected); Rhinovirus/Enterovirus PCR Not Detected (NotDetected)
[2022-03-10] MEDS ORDERED: OPTIRAY 300 500mL IV ONE (17:03)
--- NOTE | 2022-03-10 17:21 | CT Scan Report ---
CT ANGIOGRAPHY OF THE CHEST, PULMONARY EMBOLUS PROTOCOL CLINICAL HISTORY: Dyspnea. Evaluate for pulmonary embolus. COMPARISON STUDY: Chest CT January 03, 2011. Chest radiograph performed earlier today. TECHNIQUE: Following IV administration of 118 mL of Optiray, helical axial images of the chest were o btained utilizing the pulmonary embolus protocol. Maximal intensity projections and sagittal and cor onal reformats were viewed on an independent 3D workstation. IV contrast was administered without co mplication. Automated exposure control was utilized for the study. A dose lowering technique was ut ilized adhering to the principles of ALARA. CT DOSE: 499.39 mGy.cm FINDINGS: No pulmonary emboli are identified. Size of the heart is normal. There is no pericardial e ffusion. No enlarged thoracic lymph nodes are present. Note is made of moderate upper lobe predominan t ground glass opacities with interlobular septal thickening. Central airways are patent. There is no cavitation. No pneumothorax or pleural effusion is present. No acute rib or thoracic spine fracture is identified. Visualized portions of the upper abdomen are unremarkable. There is a small hiatal her melani. IMPRESSION: 1. No pulmonary emboli identified. 2. Moderate upper lobe predominant groundglass opacities with interlobular septal thickening. These f indings are nonspecific however favor an infectious process such as viral pneumonia. 3. Small hiatal hernia. ACT 112: Negative or not required by law. Electronically signed by: Vincent Staples M.D. 03/10/2022 5:20 PM
[2022-03-10] MEDS ORDERED: dexAMETHasone**PF** 10 MG/ML VIAL IV ONE (17:36)
--- NOTE | 2022-03-10 18:58 | History & Physical Report ---
Date of Service March 10, 2022 Assessment & Plan (1) Dyspnea on exertion: Plan: Patient presents with a week of dyspnea with prodrome prior to this- completed 5 day course of Azithromycin. DDX: Bacterial vs. Viral vs. Underlying Lung Disease (fibrosis/ILD) vs. other - COVID tests negative x3, respiratory biofire negative, WBC negative, PCT negative, afebrile- infective process not likely however continue with Rocephin IV daily - Albuterol scheduled for 24 hours - Flutter valve - Will not continue Decadron - not chronically immuno suppressed- consider PJP PCR - interlobar thickening noted in 2010 in the bases - Appreciate pulmonary assistance (2) Hypoxia: Plan: As above- on 2LNC Negative for PE symptomatic treatment as above (3) Esophageal reflux: Plan: Continue PPI (4) Hyperlipidemia: Plan: Continue fenofibrate Continue Zetia (5) HTN, goal below 140/90: Plan: Continue Lisinopril Continue Metoprolol History of Present Illness Primary Care Provider: Jayda Fernando MD 81 YOM with medical history of: 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 Patient presents to the EMD today for dyspnea with exertion since . He seen his PCP on 03/06/22 and was given a course of oral azithromycin. He completed this course and since his symptoms persisted he came to the EMD. The patient was noted to be hypoxci to 79 and 85% post ambulation on room air. He was given 10mg of IV Decadron, CXR, CTA of the chest that was negative for PE, and given dose of Cefepime. He had a respiratory viral panel and COVID test obtained that was negative. Hospitalist was consulted for admission. Patient states that he and his went up to [place] 01 of March to watch tennis, during that time he developed dyspnea walking about 1/2 a block, this was not associated with any chest pain or cough, this did not get any better so he and his came back to the area on the 04 of March. He and his went and got tested for COVID. His test was negative and his was Positive. He then went and seen his PCP as above. He endorses having another COVID test at the end of last week which was negative. He has been self isolating at home and sleeping in a different room as well as he and his masking at home. Prior to his symptoms on 01 March he endorses about 4-5 days prior to this feeling increase in fatigue and bodyaches- he tested at home for COVID at that time and was also Negative. He also endorses chills in the evening over the weekend that has resolved. CTA of the chest with ground glass opacities in intralobular thickening of the upper lobes bilaterally. Patient reports that he used to smoke and quit about 40 years ago and is without any toxin exposure that he can remember in the past. Procalcitonin and CRP will be sent and will continue pulmonary coverage with Rocephin. Will consult pulmonary for further evaluation and assistance. COVID/FLU/RSV- respiratory biofire: NEGATIVE Allergies Allergy/AdvReac Type Severity Reaction Status Date / Time house dust mite Allergy Unknown Sneezing Verified 03/10/22 16:53 atorvastatin AdvReac Intermediate MUSCLE Verified 03/10/22 16:53 CRAMPS choline fenofibrate AdvReac Intermediate MUSCLE Verified 03/10/22 16:53 CRAMPS spironolactone AdvReac Intermediate MUSCLE Verified 03/10/22 16:53 CRAMPS Penicillins AdvReac Unknown AVOIDS Verified 03/10/22 16:53 HIS FATHER HIGHLY ALLERGIC pollen Allergy Unknown Sneezing Uncoded 03/10/22 16:53 Home Medications Medication Instructions Recorded Confirmed Type hydrocortisone 2.5 % topical cream 1 applic SD DAILY PRN itching #30 11/19/20 03/10/22 Rx with perineal applicator grams (Proctosol HC) multivitamin 1 tab PO DAILY 11/19/20 03/10/22 History metoprolol tartrate 25 mg tablet See Rx Instructions PO BID #270 10/25/21 03/10/22 Rx tabs fenofibrate nanocrystallized 145 145 mg PO DAILY #90 tabs 11/13/21 03/10/22 Rx mg tablet tamsulosin 0.4 mg capsule 0.4 mg PO QPM #90 caps 12/06/21 03/10/22 Rx loratadine 10 mg tablet (Claritin) 10 mg PO DAILY #30 tabs 06/07/22 09/05/22 Rx lisinopril 10 mg tablet 10 mg PO DAILY #90 tabs 01/22/22 03/10/22 Rx azithromycin 250 mg tablet See Rx Instructions PO .COMPLEX #6 03/06/22 03/10/22 Rx tabs ezetimibe 10 mg tablet 10 mg PO DAILY 03/10/22 03/10/22 History Past Med/Surg History Medical History Aldosteronism Arthritis Benign paroxysmal positional vertigo Benign prostatic hyperplasia with urinary obstruction Bilateral primary osteoarthritis of knee Bursitis of right hip Cor athrscl-uns vessel Degenerative arthritis of left knee Esophageal reflux External hemorrhoids without mention of complication GERD (gastroesophageal reflux disease) History of testicular cancer HTN, goal below 140/90 Hyperlipidemia Impaired fasting glucose Lumbar spondylosis Non Hodgkin's lymphoma Peripheral neuropathy Sensorineural hearing loss (SNHL) of both ears Sensorineural hearing loss (SNHL) of both ears TIA (transient ischemic attack) Vitamin B12 deficiency Vitamin D deficiency Surgical History History of cataract surgery History of left knee replacement History of orchiectomy, unilateral left History of tonsillectomy History of total knee arthroplasty (08/14/15) left History of vasectomy S/P skin cancer resection Family History Mother Diabetes Heart disease Hypertension Father Prostate cancer Other Cancer Family history non-contributory No family history of allergies No family history of bleeding disorder Denies family history of Ovarian cancer Hearing loss Myocardial infarction Breast cancer Colorectal cancer Stroke Asthma Social History Smoking Status: Former smoker Tobacco Type: Cigarettes Age Quit Using Tobacco: 52; packs per day: 1; Years Smoked: 7; Second Hand Exposure: No; Hx Alcohol Use: Yes Alcohol type: hard liquor Alcohol Intake Frequency: Monthly or Less Hx Substance Use: No Preferred Language: Bangladeshi Communication Ability: Effective Visual Impairment: No Limitations Hearing Ability: Use of Hearing Aid marital status: Current Living Situation: Spouse current occupational status: retired Feels Safe at Home: Yes Childhood Exposure to Second-Hand Smoke: Yes caffeine: Yes during the past year weight has: remained stable Dental Care, Regularly: Yes Physical Activity Frequency: 3-4 Times per Week Seatbelt Use: always Sunscreen Use: Yes Assistive Devices: Glasses and Hearing Aid - Bilateral Review of Systems Review of Systems: REVIEW OF SYSTEMS: Constitutional: No fever, sweats or chills Eyes: No diplopia, no worsening or blurred vision ENT: normal hearing, no trouble swallowing Respiratory: (+) dyspnea with exertion, No cough, sputum, dyspnea at rest Cardiovascular: No chest pain, tightness or palpitations Abdomen: No pain, nausea, vomiting, diarrhea or constipation Musculoskeletal: No joint pain, calf pain, swelling Neurologic: No weakness, numbness/tingling, or balance problems Psychiatric: No anxiety or depression Skin: No rash or itch Physical Exam Physical Exam: PHYSICAL EXAM: General: awake, alert, no apparent distress Head: Normocephalic, atraumatic ENT: PERRL, EOMI, no pharyngeal exudate, mucous membranes moist Neuro: AAO x 3, speech clear and appropriate, strength intact bilaterally 5/5, sensation intact and equal all extremities and dermatomes, no pronator drift Chest: equal rise and fall of the chest, no accessory muscle use, no heaves or thrills, no wheeze, egophany bilateral upper lobes, clear in bases on 2LNC Cardiac: Regular rate and rhythm, telemetry reviewed, skin warm dry, cap refill <3 seconds, peripheral pulses +2 no JVD, no murmur, no JVD, no edema GI: NABS x 4 quadrants, soft, nontender to palpation, no rebound, guarding or tenderness : Spontaneously voiding, no pain, no CVA tenderness, Extremities: Normal inspection, no peripheral edema or erythema, calfs nontender to palpation Psych: Normal mood and affect Skin: no rash or erythema Results & Data Results & Data ([facility]) Vital Signs (Past 12 Hours) Vital Signs Temp Pulse Pulse Resp BP BP Pulse Ox 03/10/22 17:35 22 97 03/10/22 17:05 20 97 03/10/22 16:35 97 03/10/22 16:05 20 97 03/10/22 15:35 22 99 03/10/22 17:30 99 03/10/22 17:30 131/81 03/10/22 17:14 99 03/10/22 17:14 139/72 03/10/22 16:33 24 97 03/10/22 15:05 66 22 95 03/10/22 15:05 24 95 03/10/22 14:24 69 22 110/67 95 03/10/22 14:24 79 L 03/10/22 14:24 03/10/22 14:52 79 L 03/10/22 14:39 36.1 C L 72 24 109/70 87 L O2 Del Method O2 Flow Rate 03/10/22 17:35 Nasal Cannula 2 03/10/22 17:05 Nasal Cannula 2 03/10/22 16:35 Nasal Cannula 2 03/10/22 16:05 Nasal Cannula 2 03/10/22 15:35 Room Air 03/10/22 17:30 03/10/22 17:30 03/10/22 17:14 03/10/22 17:14 03/10/22 16:33 03/10/22 15:05 Nasal Cannula 2 03/10/22 15:05 Nasal Cannula 2 03/10/22 14:24 Room Air 2 03/10/22 14:24 Room Air, Nasal Cannula 0 03/10/22 14:24 Nasal Cannula 2 03/10/22 14:52 Room Air 03/10/22 14:39 Room Air Laboratory Results Abnormal lab results 03/10/22 03/10/22 03/10/22 Range/Units 15:50 15:50 15:50 RBC 4.01 L (4.63-6.08) M/uL Hgb 12.9 L (14.0-18.0) g/dl Hct 38.6 L (40.1-51.0) % RDW Std Deviation 47.6 H (36.4-46.3) fL [place] # (Auto) 0.99 H (0.24-0.82) K/uL D-Dimer 740 H* (0-500) ug/L FEU Alkaline Phosphatase 33 L (34-104) U/L C-Reactive Protein (0-0.5) mg/dl 03/10/22 Range/Units 15:50 RBC (4.63-6.08) M/uL Hgb (14.0-18.0) g/dl Hct (40.1-51.0) % RDW Std Deviation (36.4-46.3) fL [place] # (Auto) (0.24-0.82) K/uL D-Dimer (0-500) ug/L FEU Alkaline Phosphatase (34-104) U/L C-Reactive Protein 1.92 H (0-0.5) mg/dl Diagnostic Findings Chest CTA 03/10/22 15:05 CT ANGIOGRAPHY OF THE CHEST, PULMONARY EMBOLUS PROTOCOL CLINICAL HISTORY: Dyspnea. Evaluate for pulmonary embolus. COMPARISON STUDY: Chest CT January 03, 2011. Chest radiograph performed earlier today. TECHNIQUE: Following IV administration of 118 mL of Optiray, helical axial images of the chest were obtained utilizing the pulmonary embolus protocol. Maximal intensity projections and sagittal and coronal reformats were viewed on an independent 3D workstation. IV contrast was administered without complication. Automated exposure control was utilized for the study. A dose lowering technique was utilized adhering to the principles of ALARA. CT DOSE: 499.39 mGy.cm FINDINGS: No pulmonary emboli are identified. Size of the heart is normal. There is no pericardial effusion. No enlarged thoracic lymph nodes are present. Note is made of moderate upper lobe predominant ground glass opacities with interlobular septal thickening. Central airways are patent. There is no cavitation. No pneumothorax or pleural effusion is present. No acute rib or thoracic spine fracture is identified. Visualized portions of the upper abdomen are unremarkable. There is a small hiatal hernia. IMPRESSION: 1. No pulmonary emboli identified. 2. Moderate upper lobe predominant groundglass opacities with interlobular septal thickening. These findings are nonspecific however favor an infectious process such as viral pneumonia. 3. Small hiatal hernia. ACT 112: Negative or not required by law. Electronically signed by: Vincent Staples M.D. 03/10/2022 5:20 PM Chest X-Ray 03/10/22 15:05 XR chest 1V portable CLINICAL HISTORY: SEPSIS COMPARISON STUDY: Chest radiograph March 06, 2022. Chest radiograph August 25, 2018. Chest CT January 03, 2011. FINDINGS: Lung volumes are normal. No pneumothorax or pleural effusion is present. Interstitial thickening and patchy bilateral airspace opacities are noted. Findings have slightly progressed since prior exam. Cardiomegaly is noted. No evidence for pulmonary edema. IMPRESSION: Interstitial thickening and patchy bilateral airspace opacities which have minimally progressed. The findings favor an infectious process. Chronic interstitial lung disease could appear similar. ACT 112: Negative or not required by law. Electronically signed by: Vincent Staples M.D. 03/10/2022 4:17 PM Medications Administered Home Medications hydrocortisone 2.5 % topical cream with perineal applicator (Proctosol HC) 1 applic SD DAILY PRN itching #30 grams 11/19/20 [Rx Confirmed 03/10/22] multivitamin 1 tab PO DAILY 11/19/20 [History Confirmed 03/10/22] metoprolol tartrate 25 mg tablet See Rx Instructions PO BID #270 tabs 10/25/21 [Rx Confirmed 03/10/22] fenofibrate nanocrystallized 145 mg tablet 145 mg PO DAILY #90 tabs 11/13/21 [Rx Confirmed 03/10/22] tamsulosin 0.4 mg capsule 0.4 mg PO QPM #90 caps 12/06/21 [Rx Confirmed 03/10/22] loratadine 10 mg tablet (Claritin) 10 mg PO DAILY #30 tabs 12/10/21 [Rx Confi rmed 03/10/22] lisinopril 10 mg tablet 10 mg PO DAILY #90 tabs 01/22/22 [Rx Confirmed 03/10/22] azithromycin 250 mg tablet See Rx Instructions PO .COMPLEX #6 tabs 03/06/22 [Rx Confirmed 03/10/22] ezetimibe 10 mg tablet 10 mg PO DAILY 03/10/22 [History Confirmed 03/10/22] Discontinued Medications Dexamethasone Sodium Phosphate (DexamethasonePf 10 Mg/Ml Vial) 10 mg IV NOW ONE Stop: 03/10/22 17:37 Last Admin: 03/10/22 18:41 Dose: 10 mg Documented By: ROSEMARIE Cefepime HCl (Maxipime) 2,000 mg in 20 mls @ 5 mls/min IV NOW STA; Protocol Stop: 03/10/22 15:08 Last Admin: 03/10/22 15:26 Dose: 5 mls/min Documented By: ROSEMARIE Ioversol (Optiray 300 500ml) 118 ml IV ONCE ONE Stop: 03/10/22 17:04 Last Admin: 03/10/22 17:05 Dose: 118 ml Documented By: [facility] ECG Additional Comments: Normal sinus rhythm Voltage criteria for left ventricular hypertrophy Abnormal ECG When compared with ECG of 25-AUG-2018 22:10, Non-specific change in ST segment in Lateral leads T wave inversion now evident in Inferior leads Nonspecific T wave abnormality no longer evident in Lateral leads Code Status & VTE Plan Code Status CODE: FULL VTE: SCDS, Lovenox 40mg sub q daily VTE Prophylaxis Plan VTE Prophylaxis will be ordered: Yes Supervising Physician Co-Signing Physician Notes I supervised OLIVIA Deleon on this admission. I interviewed and examined the patient independently of him. The plan is as written in his note except for any following changes/exceptions: None 81yo M w/ hx of non-Hodgkin's lymphoma who presents with dyspnea on exertion. was diagnosed with Covid, but he has tested negative. CT chest seems to indicate viral pneumonia, but some of these changes seem longer standing as long as back to 2010. Will treat for CAP with better Strep coverage (had been on a Z- pack previously). Pulm consult for possible ILD. PG Care Time/CCT Total # of Minutes Spent Total Time Spent with Patient: Total time spent is greater than 50% in coordination of care (as documented) at patient's floor/unit and/or counseling patient: Coding Level of Care Code 23300 Initial Inpt Care Lvl 3 Diagnoses Dyspnea on exertion R06.09 Hypoxia R09.02 Esophageal reflux K21.9 Hyperlipidemia E78.5 HTN, goal below 140/90 I10
[2022-03-10] MEDS ORDERED: ONDANSETRON INJ 2 MG/ML 2 ML VIAL IV PRN (20:12)
[2022-03-10] MEDS ORDERED: ACETAMINOPHEN 325 MG TAB PO PRN (20:12)
[2022-03-10] MEDS: METOPROLOL TARTRATE 25 MG TAB PO SCH (21:10)
[2022-03-10] MEDS: TAMSULOSIN HCL 0.4 MG CAP PO SCH (21:10)
[2022-03-10] MEDS: ALBUTEROL 0.083% NEBU SOLN 3 ML VIAL NEB SCH (21:34)
[2022-03-11] MEDS: ALBUTEROL 0.083% NEBU SOLN 3 ML VIAL NEB SCH ×2 (00:22→07:09)
[2022-03-11 06:56] LABS: Basophils # (auto) 0.02 K/uL (0-0.2); Basophils % (auto) 0.3 %; Hematocrit (blood only) 38.2 % (40.1-51.0); Immature Granulocytes # (auto) 0.04 K/uL (0.00-0.02); Immature Granulocytes % (auto) 0.6 %; Lymphocytes # (auto) 0.79 K/uL (1.2-3.4); Lymphocytes % (auto) 11.8 %; Mean Corpuscular Hemoglobin 32.4 pg (25.0-34.0); Mean Corpuscular Volume 95.3 fL (80.0-100.0); Monocytes # (auto) 0.24 K/uL (0.24-0.82); Monocytes % (auto) 3.6 %; Neutrophils # (auto) 5.61 K/uL (1.4-6.5); Neutrophils % (auto) 83.7 %; Platelet Count 242 K/uL (130-400); RDW Coefficient of Variation 13.1 % (11.5-14.5); Red Blood Count 4.01 M/uL (4.63-6.08)
[2022-03-11 08:05] LABS: BUN Creatinine Ratio 21.7 (10-20); Creatinine Clr Calc Pharmacy 51.2 ml/min; Est GFR (African American) 69.3 ml/min; Est GFR (Non-African American) 59.8 ml/min
[2022-03-11] MEDS: cefTRIAXone SODIUM 2,000 MG in DEXTROSE 5% 50 ML IV SCH (08:11)
[2022-03-11] MEDS: EZETIMIBE 10 MG TABLET PO SCH (08:12)
[2022-03-11] MEDS: LORATADINE 10 MG TAB PO SCH (08:12)
[2022-03-11] MEDS: METOPROLOL TARTRATE 25 MG TAB PO SCH ×2 (08:12→20:35)
[2022-03-11] MEDS: lisinopril 10 MG TAB PO SCH (08:12)
[2022-03-11] MEDS ORDERED: ALBUTEROL 0.083% NEBU SOLN 3 ML VIAL NEB PRN (10:06)
--- NOTE | 2022-03-11 11:31 | Electrocardiogram Report ---
Test Reason : Blood Pressure : / mmHG Vent. Rate : 067 BPM Atrial Rate : 067 BPM P-R Int : 200 ms QRS Dur : 092 ms QT Int : 380 ms P-R-T Axes : 002 -25 -08 degrees QTc Int : 401 ms Poor data quality, interpretation may be adversely affected Normal sinus rhythm Voltage criteria for left ventricular hypertrophy Abnormal ECG When compared with ECG of 25-AUG-2018 22:10, Non-specific change in ST segment in Lateral leads T wave inversion now evident in Inferior leads Nonspecific T wave abnormality no longer evident in Lateral leads Confirmed by Ahmet Shafer ([id number]) on 03/11/2022 11:30:33 AM Referred By: Confirmed By:Jeramie Shafer
--- NOTE | 2022-03-11 12:23 | Pulmonary Consultation ---
Date of Consultation March 11, 2022 Assessment & Plan (1) Pneumonia of both upper lobes: Ground glass opacities noted predominantly in the upper lobes on CT chest. The pattern is somewhat unusual, but could be seen in acute hypersensitivity pneumonitis and NSIP. ILD labs ordered. ESR elevated suggesting an inflammatory state. U/A ordered to look for protein and blood. CK level normal. Continue with broad-spectrum antibiotics. Hold on any further steroids at this time. Patient does not want to proceed with a bronchoscopy at this time. Diffuse alveolar hemorrhage unlikely. We will reconvene with the patient tomorrow and see how he is doing. Repeat cxr in the AM. Bio fire and COVID-19 testing negative. (2) Dyspnea on exertion: Secondary to the acute pulmonary process. Improved today. (3) Hypoxia: Continue to wean oxygen as able. Maintain sats of 92% and above. History of Present Illness Reason for Consultation: Abnormal CT chest and hypoxemia Attending Physician: Dieter Zhang MD History of Present Illness 81-year-old male with a past medical history of testicular lymphoma with completion of Rituxan and prophylactic intrathecal methotrexate in 2006, bone marrow transplant 2005, hearing loss, hypertension, GERD and COVID-19 infection in November 2021 who presented to the ER due to shortness of breath with exertion since late February. He was seen by his primary care provider earlier this month for similar complaints. He was found to be hypoxic and requiring 2 L of oxygen in the emergency department. He was given 10 mg of Decadron. He was also given a dose of cefepime. He tested positive for COVID-19 in November. He retested himself in late February due to body aches and fatigue and was negative. He had a respiratory bio fire completed yesterday which was negative. Chest CTA completed yesterday demonstrated moderate upper lobe predominant groundglass opacities with interlobular septal thickening. A small hiatal hernia was seen. No significant eosinophilia noted on CBC. No leukocytosis noted. Renal function is normal. CRP was very mildly elevated. Pro-Chris was negative. Patient is currently on Rocephin 2 g daily. He notes that his shortness of breath has improved somewhat. He has not been out of bed today. He denies any significant cough at present. He did have a dry cough earlier in the week. He denies any chills today. He did have some chills earlier in the week as well. No fevers. No chest pain. He quit smoking about 40 years ago. He has 1 dog at home. 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 Allergies Allergy/AdvReac Type Severity Reaction Status Date / Time house dust mite Allergy Unknown Sneezing Verified 03/10/22 16:53 atorvastatin AdvReac Intermediate MUSCLE Verified 03/10/22 16:53 CRAMPS choline fenofibrate AdvReac Intermediate MUSCLE Verified 03/10/22 16:53 CRAMPS spironolactone AdvReac Intermediate MUSCLE Verified 03/10/22 16:53 CRAMPS Penicillins AdvReac Unknown AVOIDS Verified 03/10/22 16:53 HIS FATHER HIGHLY ALLERGIC pollen Allergy Unknown Sneezing Uncoded 03/10/22 16:53 Home Medications Medication Instructions Recorded Confirmed Type hydrocortisone 2.5 % topical cream 1 applic RI DAILY PRN itching #30 11/19/20 03/10/22 Rx with perineal applicator grams (Proctosol HC) multivitamin 1 tab PO DAILY 11/19/20 03/10/22 History metoprolol tartrate 25 mg tablet See Rx Instructions PO BID #270 10/25/21 03/10/22 Rx tabs fenofibrate nanocrystallized 145 145 mg PO DAILY #90 tabs 11/13/21 03/10/22 Rx mg tablet tamsulosin 0.4 mg capsule 0.4 mg PO QPM #90 caps 12/06/21 03/10/22 Rx loratadine 10 mg tablet (Claritin) 10 mg PO DAILY #30 tabs 12/10/21 03/10/22 Rx lisinopril 10 mg tablet 10 mg PO DAILY #90 tabs 01/22/22 03/10/22 Rx azithromycin 250 mg tablet See Rx Instructions PO .COMPLEX #6 03/06/22 03/10/22 Rx tabs ezetimibe 10 mg tablet 10 mg PO DAILY 03/10/22 03/10/22 History Patient History Medical History Aldosteronism Arthritis Benign paroxysmal positional vertigo Benign prostatic hyperplasia with urinary obstruction Bilateral primary osteoarthritis of knee Bursitis of right hip Cor athrscl-uns vessel Degenerative arthritis of left knee Esophageal reflux External hemorrhoids without mention of complication GERD (gastroesophageal reflux disease) History of testicular cancer HTN, goal below 140/90 Hyperlipidemia Impaired fasting glucose Lumbar spondylosis Non Hodgkin's lymphoma Peripheral neuropathy Sensorineural hearing loss (SNHL) of both ears Sensorineural hearing loss (SNHL) of both ears TIA (transient ischemic attack) Vitamin B12 deficiency Vitamin D deficiency Surgical History History of cataract surgery History of left knee replacement History of orchiectomy, unilateral left History of tonsillectomy History of total knee arthroplasty (08/14/15) left History of vasectomy S/P skin cancer resection Family History Mother Diabetes Heart disease Hypertension Father Prostate cancer Other Cancer Family history non-contributory No family history of allergies No family history of bleeding disorder Denies family history of Ovarian cancer Hearing loss Myocardial infarction Breast cancer Colorectal cancer Stroke Asthma Social History Smoking Status: Former smoker Tobacco Type: Cigarettes Age Quit Using Tobacco: 52; packs per day: 1; Years Smoked: 7; Second Hand Exposure: No; Hx Alcohol Use: No Hx Substance Use: No Preferred Language: Gabonese Communication Ability: Effective Visual Impairment: No Limitations Hearing Ability: Use of Hearing Aid [employer] Equipment [employer] Required: No Beliefs That Will Affect Care: None marital status: Current Living Situation: Spouse current occupational status: retired Feels Safe at Home: Yes Childhood Exposure to Second-Hand Smoke: Yes caffeine: Yes during the past year weight has: remained stable Dental Care, Regularly: Yes Physical Activity Frequency: 3-4 Times per Week Seatbelt Use: always Sunscreen Use: Yes Assistive Devices: Cane Review of Systems Review of Systems: All systems reviewed & are unremarkable except as noted in HPI & below Physical Exam Physical Exam: Constitutional: Patient appears to be of their stated age. Patient is in no apparent distress. Patient is well-developed. Eyes: Pupils are equal round and reactive to light. Conjunctivae are normal. Anicteric sclera. Ears nose, mouth and throat: Deferred. Neck: Trachea is midline. Visual inspection is normal. Respiratory: Clear to auscultation bilaterally. No use of accessory muscles. No significant clubbing noted. Cardiovascular: Regular rate and rhythm. No murmurs. No edema. Gastrointestinal: Normal bowel sounds, soft, nontender and nondistended. No hepatosplenomegaly noted. Musculoskeletal: No cyanosis. Patient is able to move all extremities. Skin: No rashes, warm dry and intact. Neurologic: No obvious focal neurological deficits seen. Psychiatric: Alert and oriented x3 with a euthymic affect. Results & Data Results & Data ([facility]) Vital Signs (Past 12 Hours) Vital Signs Temp Pulse Pulse Resp BP Pulse Ox O2 Del Method 03/11/22 08:00 Nasal Cannula 03/11/22 07:50 36.4 C L 89 16 143/73 H 99 Nasal Cannula 03/11/22 07:10 77 18 96 Nasal Cannula 03/11/22 00:22 67 18 95 Nasal Cannula O2 Flow Rate 03/11/22 08:00 2 03/11/22 07:50 2 03/11/22 07:10 2 03/11/22 00:22 2 PG Care Time/CCT Total # of Minutes Spent Total Time Spent with Patient: Total time spent is greater than 50% in coordination of care (as documented) at patient's floor/unit and/or counseling patient: Coding Level of Care Code 39233 Initial Inpt Care Lvl 3 Diagnoses Pneumonia of both upper lobes J18.9 Dyspnea on exertion R06.09 Hypoxia R09.02
[2022-03-11 16:54] LABS: Appearance Urine Clear (Clear); Bacteria Urine Automated Negative (Negative); Bilirubin Urine Negative (Negative); Blood Urine 2+ (Negative); Color Urine Yellow; Glucose Urine UA Negative (Negative); Ketones Urine Negative (Negative); Leukocyte Esterase Urine Negative (Negative); Nitrite Urine Negative (Negative); Protein Urine Negative (Negative); Specific Gravity Urine 1.021 (1.000-1.030); Urobilinogen Urine Negative (Negative); pH Urine 5.5 (4.5-7.5)
[2022-03-11] MEDS: TAMSULOSIN HCL 0.4 MG CAP PO SCH (20:35)
[2022-03-11] MEDS: ENOXAPARIN INJ 40 MG/0.4 ML SYR SQ SCH (20:35)
[2022-03-11] MEDS: MELATONIN 3 MG TAB PO PRN (22:03)
[2022-03-12 06:35] LABS: Basophils # (auto) 0.05 K/uL (0-0.2); Basophils % (auto) 0.6 %; Eosinophils # (auto) 0.11 K/uL (0-0.50); Eosinophils % (auto) 1.4 %; Hemoglobin 12.4 g/dl (14.0-18.0); Immature Granulocytes # (auto) 0.03 K/uL (0.00-0.02); Immature Granulocytes % (auto) 0.4 %; Lymphocytes # (auto) 2.04 K/uL (1.2-3.4); Lymphocytes % (auto) 25.2 %; Mean Corpuscular Hemoglobin 32.5 pg (25.0-34.0); Mean Corpuscular Hgb Conc 33.5 g/dL (32.0-36.0); Mean Corpuscular Volume 97.1 fL (80.0-100.0); Mean Platelet Volume 10.5 fL (9.4-12.4); Monocytes # (auto) 1.05 K/uL (0.24-0.82); Neutrophils # (auto) 4.82 K/uL (1.4-6.5); Neutrophils % (auto) 59.4 %; Platelet Count 224 K/uL (130-400); RDW Coefficient of Variation 13.2 % (11.5-14.5); RDW Standard Deviation 46.9 fL (36.4-46.3); Red Blood Count 3.81 M/uL (4.63-6.08)
[2022-03-12 07:09] LABS: BUN Creatinine Ratio 21.8 (10-20); Calcium 9.9 mg/dl (8.5-10.1); Creatinine Clr Calc Pharmacy 49.5 ml/min; Est GFR (African American) 66.5 ml/min; Est GFR (Non-African American) 57.3 ml/min; Magnesium 2.1 mg/dl (1.7-2.4); Potassium 4.7 mmol/L (3.5-5.1)
[2022-03-12] MEDS: EZETIMIBE 10 MG TABLET PO SCH (07:51)
[2022-03-12] MEDS: cefTRIAXone SODIUM 2,000 MG in DEXTROSE 5% 50 ML IV SCH (07:51)
[2022-03-12] MEDS: METOPROLOL TARTRATE 25 MG TAB PO SCH ×2 (07:51→21:17)
[2022-03-12] MEDS: lisinopril 10 MG TAB PO SCH (07:54)
[2022-03-12] MEDS: LORATADINE 10 MG TAB PO SCH (07:54)
--- NOTE | 2022-03-12 09:46 | Hospitalist Progress Note ---
Date of Service March 12, 2022 Assessment & Plan (1) Dyspnea on exertion: Plan: Patient presents with a week of dyspnea with prodrome prior to this- completed 5 day course of Azithromycin. DDX: Bacterial vs. Viral vs. Underlying Lung Disease (fibrosis/ILD) vs. other - COVID tests negative x3, respiratory biofire negative, WBC negative, PCT negative, afebrile - continue with Rocephin IV daily - Albuterol scheduled for 24 hours - Flutter valve - stopped Decadron - not chronically immuno suppressed- consider PJP PCR - interlobar thickening noted in 2010 in the bases - Appreciate pulmonary assistance, for brnochoscopy 03/13/22 (2) Hypoxia: Plan: As above- on 2LNC Negative for PE symptomatic treatment as above (3) Esophageal reflux: Plan: Continue PPI (4) Hyperlipidemia: Plan: Continue fenofibrate Continue Zetia (5) HTN, goal below 140/90: Plan: Continue Lisinopril Continue Metoprolol Admission and Anticipated Discharge Date Admission Date: March 10, 2022 Subjective pt is comfortable on 2 L nc, has agreed to bronch 03/13/22, some non productive cough and dyspnea on exertion Review of Systems Review of Systems: Mild distress and fatigue no headache, no visual changes no speech or swallowing issues no chest pain, pressure or palpitations shortness of breath,non productive cough or wheezes no abdominal pain, nausea or vomiting, diarrhea or constipation no dysuria, hematuria or frequency no focal joint pain or swelling no back pain, CVA tenderness or radicular pain no bruising, bleeding or rashes no focal signs of weakness or numbness or altered sensation no complaints of anxiety or depression.. Physical Exam Physical Exam: The patient appeared well nourished and normally developed. Vital signs as documented. Head exam is normocephalic atraumatic Neck is without JVD, thyromegaly, or carotid bruits. Lungs are with coarse breath sounds in all lung [place] Cardiac exam, Rhythm is regular.. No murmurs, rubs or gallops. Abdominal exam reveals normal bowel sounds, soft non tender, no masses Extremities are nonedematous and both pedal pulses are present Neurologic exam is alert and oriented, no focal loss of strength or sensation Skin is without bruises or rashes Psychologically is without concerns for anxiety or depression.. Results & Data Results & Data ([facility]) Vital Signs (Past 12 Hours) Vital Signs Temp Pulse Resp BP BP Pulse Ox O2 Del Method 03/12/22 09:18 Nasal Cannula 03/12/22 07:43 97.9 F 65 16 96/64 L 94/60 L 95 Nasal Cannula 03/11/22 22:00 98.1 F 64 20 112/71 95 Nasal Cannula O2 Flow Rate 03/12/22 09:18 2 03/12/22 07:43 2 03/11/22 22:00 2 PG Care Time/CCT Total # of Minutes Spent Total Time Spent with Patient: Total time spent is greater than 50% in coordination of care (as documented) at patient's floor/unit and/or counseling patient: Coding Level of Care Code 73928 Subseq Hosp Care Lvl 2 Diagnoses Dyspnea on exertion R06.09 Hypoxia R09.02 Esophageal reflux K21.9 Hyperlipidemia E78.5 HTN, goal below 140/90 I10
--- NOTE | 2022-03-12 13:21 | XRay Report ---
XR chest 2V PA/lateral HISTORY: Dyspnea. follow up infiltrates COMPARISON: Chest 03/10/2022. FINDINGS: No pneumothorax. No pleural effusions. The cardiac silhouette remains mildly enlarged. Diff use interstitial thickening and a few patchy bilateral hazy airspace opacities are again noted. This is similar to the prior study. No new focal lung consolidations identified. No evidence for pulmonary edema. IMPRESSION: No significant change in the diffuse interstitial thickening and scattered hazy bilateral airspace op acities. ACT 112: Negative or not required by law. Electronically signed by: Swapnil Bray M.D. 03/12/2022 1:20 PM
--- NOTE | 2022-03-12 14:08 | Pulmonology Progress Note ---
Date of Service March 12, 2022 Assessment & Plan (1) Pneumonia of both upper lobes: Plan: Ground glass opacities noted predominantly in the upper lobes on CT chest. The pattern is somewhat unusual, but could be seen in acute hypersensitivity pneumonitis and NSIP. ILD labs ordered. ESR elevated suggesting an inflammatory state. U/A with 2+ blood suggesting possible nephritic process. CK level normal. Continue with broad-spectrum antibiotics. Hold on any further steroids at this time. Chest x-ray from today reviewed with continued interstitial infiltrates. Patient agreeable to proceeding with bronchoscopy to rule out infectious etiology, eosinophilic process and alveolar hemorrhage. We will proceed with bronchoscopy tomorrow. Patient NPO. Please hold all anticoagulation. Will likely start empiric prednisone after bronchoscopy. Bio fire and COVID-19 testing negative. (2) Dyspnea on exertion: Plan: Secondary to the acute pulmonary process. (3) Hypoxia: Plan: Continue to wean oxygen as able. Maintain sats of 92% and above. (4) ESR raised: Admission and Anticipated Discharge Date Admission Date: March 10, 2022 Subjective Patient continues to have dyspnea with minimal exertion. He is on 2 L of oxygen via nasal cannula. Cough is minimal at this time. He is tolerating his diet well and has a good appetite. Review of Systems Review of Systems: All systems reviewed & are unremarkable except as noted in HPI & below Physical Exam Physical Exam: Constitutional: Patient appears to be of their stated age. Patient is in no apparent distress. Patient is well-developed. Eyes: Pupils are equal round and reactive to light. Conjunctivae are normal. Anicteric sclera. Ears nose, mouth and throat: Deferred. Neck: Trachea is midline. Visual inspection is normal. Respiratory: Clear to auscultation bilaterally. No use of accessory muscles. No significant clubbing noted. Cardiovascular: Regular rate and rhythm. No murmurs. No edema. Gastrointestinal: Normal bowel sounds, soft, nontender and nondistended. No hepatosplenomegaly noted. Musculoskeletal: No cyanosis. Patient is able to move all extremities. Skin: No rashes, warm dry and intact. Neurologic: No obvious focal neurological deficits seen. Psychiatric: Alert and oriented x3 with a euthymic affect. Results & Data Results & Data ([facility]) Vital Signs (Past 12 Hours) Vital Signs Temp Pulse Resp BP BP Pulse Ox O2 Del Method 03/12/22 09:18 Nasal Cannula 03/12/22 07:43 36.6 C 65 16 96/64 L 94/60 L 95 Nasal Cannula O2 Flow Rate 03/12/22 09:18 2 03/12/22 07:43 2 PG Care Time/CCT Total # of Minutes Spent Total Time Spent with Patient: Total time spent is greater than 50% in coordination of care (as documented) at patient's floor/unit and/or counseling patient: Coding Level of Care Code 35210 Subseq Hosp Care Lvl 3 Diagnoses Pneumonia of both upper lobes J18.9 Dyspnea on exertion R06.09 Hypoxia R09.02 ESR raised R70.0
[2022-03-12] MEDS: SENNA 8.6 MG TAB PO SCH (15:59)
[2022-03-12] MEDS: ENOXAPARIN INJ 40 MG/0.4 ML SYR SQ SCH (17:28)
[2022-03-12] MEDS: TAMSULOSIN HCL 0.4 MG CAP PO SCH (21:17)
[2022-03-12] MEDS: MELATONIN 3 MG TAB PO PRN (21:17)
[2022-03-13] MEDS ORDERED: FAMOTIDINE 20 MG TAB PO ONE (01:05)
[2022-03-13] MEDS: LORATADINE 10 MG TAB PO SCH (07:53)
[2022-03-13] MEDS: EZETIMIBE 10 MG TABLET PO SCH (07:53)
[2022-03-13] MEDS: lisinopril 10 MG TAB PO SCH (07:53)
[2022-03-13] MEDS: METOPROLOL TARTRATE 25 MG TAB PO SCH ×2 (07:53→21:53)
[2022-03-13] MEDS: SENNA 8.6 MG TAB PO SCH (07:56)
[2022-03-13 08:04] LABS: Basophils # (auto) 0.06 K/uL (0-0.2); Basophils % (auto) 0.9 %; Eosinophils # (auto) 0.16 K/uL (0-0.50); Eosinophils % (auto) 2.4 %; Hematocrit (blood only) 37.9 % (40.1-51.0); Hemoglobin 12.2 g/dl (14.0-18.0); Immature Granulocytes # (auto) 0.03 K/uL (0.00-0.02); Immature Granulocytes % (auto) 0.5 %; Lymphocytes # (auto) 1.14 K/uL (1.2-3.4); Lymphocytes % (auto) 17.2 %; Mean Corpuscular Hemoglobin 31.7 pg (25.0-34.0); Mean Corpuscular Hgb Conc 32.2 g/dL (32.0-36.0); Mean Corpuscular Volume 98.4 fL (80.0-100.0); Mean Platelet Volume 10.1 fL (9.4-12.4); Monocytes # (auto) 0.94 K/uL (0.24-0.82); Monocytes % (auto) 14.2 %; Neutrophils # (auto) 4.28 K/uL (1.4-6.5); Neutrophils % (auto) 64.8 %; Platelet Count 216 K/uL (130-400); RDW Coefficient of Variation 13.2 % (11.5-14.5); RDW Standard Deviation 47.5 fL (36.4-46.3); Red Blood Count 3.85 M/uL (4.63-6.08); White Blood Count 6.61 K/ul (4.8-10.8)
[2022-03-13] MEDS: cefTRIAXone SODIUM 2,000 MG in DEXTROSE 5% 50 ML IV SCH (08:06)
[2022-03-13] MEDS ORDERED: MIDAZOLAM HCL 5 MG/ML 1 ML VIAL ONE ×2 (08:16)
[2022-03-13] MEDS ORDERED: fentaNYL citrate 100 MCG/2 ML VIAL ONE (08:17)
--- NOTE | 2022-03-13 08:29 | History & Physical Bridge Note ---
Date of Service March 13, 2022 History & Physical Bridge Note I have examined the patient, reviewed the History & Physical and in the interval since the performance of the History & Physical I have noted the following changes of clinical significance: no changes noted
--- NOTE | 2022-03-13 08:29 | Pre Anesthesia Assessment ---
Date of Service March 13, 2022 Pre Sedation Assessment Vital Signs Temp Pulse Pulse Resp BP BP Pulse Ox 03/13/22 08:10 36.5 C 61 16 104/66 98 03/13/22 07:58 36.4 C L 59 L 16 101/68 97 03/13/22 07:45 03/12/22 19:38 03/12/22 21:16 36.8 C 68 104/65 95 03/12/22 15:17 36.6 C 83 16 131/79 98 03/12/22 09:18 O2 Del Method O2 Flow Rate 03/13/22 08:10 Nasal Cannula 2 03/13/22 07:58 2 03/13/22 07:45 Nasal Cannula 2 03/12/22 19:38 Nasal Cannula 2 03/12/22 21:16 Nasal Cannula 2 03/12/22 15:17 Room Air 2 03/12/22 09:18 Nasal Cannula 2 Pre-Sedation Airway Assessment Smoking Status: Former smoker Hx Sleep Apnea: No Short, Thick Neck: No Thyromental Distance: > or= 3.5 Finger Breadths Oral Cavity: + WNL Mallampati Class: III ASA: ASA3 NPO Status Date of Last Intake of Fluids: 03/12/22 Time of Last Intake of Fluids: 23:00 Last Oral Intake of Fluids Comment: sip with meds this am Date of Last Intake of Solid Food: 03/12/22 Time of Last Intake of Solid Foods: 23:00 Notes The planned sedation has been discussed with the patient. Informed Consent was obtained. I have identified the patient, determined the appropriateness of sedation and have assessed the patient immediately prior to the procedure. All medicine(s) and interventions are by my order.
[2022-03-13 08:30] LABS: BUN Creatinine Ratio 23.1 (10-20); Calcium 9.7 mg/dl (8.5-10.1); Creatinine Clr Calc Pharmacy 50.4 ml/min; Est GFR (African American) 67.8 ml/min; Est GFR (Non-African American) 58.5 ml/min; Magnesium 1.9 mg/dl (1.7-2.4); Potassium 4.6 mmol/L (3.5-5.1)
[2022-03-13] MEDS ORDERED: SENNA 8.6 MG TAB PO SCH (09:00)
--- NOTE | 2022-03-13 09:02 | Post Anesthesia Assessment ---
Date of Service March 13, 2022 Post Sedation Assessment Vital Signs Temp Pulse Pulse Pulse Resp BP BP 03/13/22 08:55 69 16 91/55 L 03/13/22 08:50 65 16 98/67 L 03/13/22 08:45 66 16 99/54 L 03/13/22 08:40 64 16 108/66 03/13/22 08:35 62 16 110/63 03/13/22 08:28 59 L 16 115/62 03/13/22 08:10 36.5 C 61 16 104/66 03/13/22 07:58 36.4 C L 59 L 16 101/68 03/13/22 07:45 03/12/22 19:38 03/12/22 21:16 36.8 C 68 104/65 03/12/22 15:17 36.6 C 83 16 131/79 03/12/22 09:18 Pulse Ox O2 Del Method O2 Flow Rate 03/13/22 08:55 98 Oxymask 15 03/13/22 08:50 94 Oxymask 15 03/13/22 08:45 92 Oxymask 15 03/13/22 08:40 100 Oxymask 4 03/13/22 08:35 98 Oxymask 4 03/13/22 08:28 98 Oxymask 4 03/13/22 08:10 98 Nasal Cannula 2 03/13/22 07:58 97 2 03/13/22 07:45 Nasal Cannula 2 03/12/22 19:38 Nasal Cannula 2 03/12/22 21:16 95 Nasal Cannula 2 03/12/22 15:17 98 Room Air 2 03/12/22 09:18 Nasal Cannula 2 Discharge Sedation Level of Care: Fast Track Phase II Post Sedation Plan On clinical assessment, the patient appears to have tolerated the sedation without complications. Patient is recovering as anticipated. Patient will continue to be monitored by nursing and may be discharged when sedation discharge criteria are met per below protocol. Upon Completions of procedure up to 15 minutes continue every 5 minute vital signs and the P.A.R. score; then discharge to a Phase I or Fast Track to Phase II per the following guidelines: * Discharge Patient to appropriate Phase II area if PAR is 8 or greater or return to pre- procedure baseline. The post - procedure orders will be as directed. * If PAR score is less than 8 or not return to pre-procedure baseline then patient will follow Phase I monitoring till PAR is reached for Phase II. The Phase I may be done in procedure room or may call to secure a Phase I area. * If naloxone or flumazenil are used for reversal, hold in Phase I for continued monitoring from when last reversal dose was given for a minimum of 60 minutes or longer pending the nurse and/or physician discretion of patient condition before discharge to Phase II. Please call the Sedation Physician to re-evaluate and complete post-note for discharge to Phase II area. Do NOT discharge from procedure sedation or Phase 1 until post- sedation evaluation note is complete by procedure /sedation MD Sedation Discharge Instructions to be given to the patient at discharge to home.
--- NOTE | 2022-03-13 09:05 | Procedure Note ---
Procedure Note: Bronchoscopy Procedure PREOPERATIVE DIAGNOSIS: Pneumonitis POSTOPERATIVE DIAGNOSIS: Pneumonitis PROCEDURE PERFORMED: Flexible fiberoptic bronchoscopy with BAL from the right upper lobe and left upper lobe, microscopy brushings from the right upper lobe and cytology brushings from the left upper lobe. COMPLICATIONS: None. INDICATION: Rule out inflammatory/infectious conditions. PROCEDURE: After obtaining an informed consent, the patient was brought to the Bronchoscopy Suite. The patient had appropriate oxygen, blood pressure, heart rate, and respiratory rate monitoring applied and monitored continuously throughout the procedure. Supplemental oxygen via nasal cannula as per nursing records was applied to the nasopharynx with adequate saturations achieved. Topical anesthesia with nebulized 1% lidocaine was achieved. Subsequent to this, the patient was premedicated with 4 mg of midazolam and 100 mcg of fentanyl. The oropharynx and larynx were well visualized and showed mild erythema. The bronchoscope was inserted via the right nares, but the patient was having pain. I was able to visualize the epiglottis and instill some topical lidocaine over the epiglottis. I then removed the scope. We placed a bite-block in the patient's mouth and we inserted the bronchoscope via the bite block. I was able to visualize the epiglottis and the vocal cords. He appeared to be moving well without any lesion. I advanced the scope to the level of the trachea which appeared tortuous. Excessive dynamic airway collapse was noted. We then instilled topical lidocaine on the trachea and the jana which appeared sharp. We then performing tracheobronchial tree inspection bilaterally. Thin mucus secretions were noted bilaterally. I then performed a BAL in the right upper lobe and then a BAL in the left upper lobe. Adequate fluid was aspirated back. I then performed microscopy brushings from the right upper lobe and cytology brushings from the left upper lobe. No significant bleeding was noted. The scope was then completely withdrawn and the patient woke up. Patient tolerated the procedure well. Post procedure chest x-ray is pending. Bronchoalveolar lavage samples were sent for cell count, Gram stain and bacterial culture, AFB culture and smear, fungal culture and smear, and cytology. Washings sent for cytology and microscopy Recommendations: Await cytology data and culture data. Initiate Solu-Medrol 40 mg twice daily. [facility] [place] Procedure Codes (Charges) Pulmonary/Thoracic Procedure 1: Pulmonary and Thoracic: 23394 Dx bronchoscopy/BAL Procedure 2: Pulmonary and Thoracic: 91857 Dx bronchoscopy/brush Sedation/Anesthesia Procedure 1: Sedation/Anesthesia: 34927 Mod Sedation by the same physician;Init15 Min Child Age 5 & Up Total Sedation Time (minutes): 27
--- NOTE | 2022-03-13 09:24 | XRay Report ---
XR chest 1V portable HISTORY: 81 years-old Male post bronch COMPARISON: Chest radiograph 03/12/2022, CTA chest 03/10/2022 TECHNIQUE: Portable AP view of the chest FINDINGS: Cardiac silhouette is enlarged. Interstitial coarsening with bilateral hazy opacities appear stable f rom prior. No postprocedural pneumothorax. No pleural effusion or overt pulmonary edema. Degenerative changes of the shoulders and spine. IMPRESSION: Stable bilateral pulmonary opacities. No postprocedural pneumothorax. ACT 112: Negative or not required by law. The above report was generated using voice recognition software. It may contain grammatical, syntax o r spelling errors. Electronically signed by: Luis Garcia M.D. 03/13/2022 9:23 AM
--- NOTE | 2022-03-13 09:27 | Pulmonology Progress Note ---
Date of Service March 13, 2022 Assessment & Plan (1) Pneumonia of both upper lobes: Plan: Ground glass opacities noted predominantly in the upper lobes on CT chest. The pattern is somewhat unusual, but could be seen in acute hypersensitivity pneumonitis and NSIP. ILD labs pending. ESR elevated suggesting an inflammatory state. U/A with 2+ blood suggesting possible nephritic process. CK level normal. Continue with broad-spectrum antibiotics. Pro BNP negative. Will obtain echo to evaluate for cardiac abnormalities. Bronchoscopy performed 03/13/2022; will follow-up cell counts, cytology and culture data. Initiating Solu-Medrol 40 mg twice daily for pneumonitis. Can likely transition to p.o. prednisone over the next 1 to 2 days. We will also start chest therapy 4 times a day, hypertonic saline twice daily and DuoNebs to promote airway clearance. Bio fire and COVID-19 testing negative. (2) Dyspnea on exertion: Plan: Secondary to the acute pulmonary process. (3) Hypoxia: Plan: Continue to wean oxygen as able. Maintain sats of 92% and above. (4) ESR raised: Plan: Steroids initiated as above. Admission and Anticipated Discharge Date Admission Date: March 10, 2022 Subjective Bronchoscopy performed today. Patient tolerated well. He endorses dry cough. No fevers or chills. Still has shortness of breath with minimal exertion. Review of Systems Review of Systems: All systems reviewed & are unremarkable except as noted in HPI & below Physical Exam Physical Exam: Constitutional: Patient appears to be of their stated age. Patient is in no apparent distress. Patient is well-developed. Eyes: Pupils are equal round and reactive to light. Conjunctivae are normal. Anicteric sclera. Ears nose, mouth and throat: Deferred. Neck: Trachea is midline. Visual inspection is normal. Respiratory: Clear to auscultation bilaterally. No use of accessory muscles. No significant clubbing noted. Cardiovascular: Regular rate and rhythm. No murmurs. No edema. Gastrointestinal: Normal bowel sounds, soft, nontender and nondistended. No hepatosplenomegaly noted. Musculoskeletal: No cyanosis. Patient is able to move all extremities. Skin: No rashes, warm dry and intact. Neurologic: No obvious focal neurological deficits seen. Psychiatric: Alert and oriented x3 with a euthymic affect. Results & Data Results & Data ([facility]) Vital Signs (Past 12 Hours) Vital Signs Temp Pulse Pulse Pulse Resp BP BP 03/13/22 09:17 36.5 C 67 16 93/55 L 03/13/22 09:02 36.5 C 71 72 14 94/59 L 03/13/22 09:02 76 16 95/60 L 03/13/22 08:57 75 16 97/62 L 03/13/22 08:55 69 16 91/55 L 03/13/22 08:50 65 16 98/67 L 03/13/22 08:45 66 16 99/54 L 03/13/22 08:40 64 16 108/66 03/13/22 08:35 62 16 110/63 03/13/22 08:28 59 L 16 115/62 03/13/22 08:10 36.5 C 61 16 104/66 03/13/22 07:58 36.4 C L 59 L 16 101/68 03/13/22 07:45 Pulse Ox O2 Del Method O2 Flow Rate 03/13/22 09:17 98 Oxymask 4 03/13/22 09:02 98 Oxymask 4 03/13/22 09:02 94 Oxymask 9 03/13/22 08:57 98 Oxymask 15 03/13/22 08:55 98 Oxymask 15 03/13/22 08:50 94 Oxymask 15 03/13/22 08:45 92 Oxymask 15 03/13/22 08:40 100 Oxymask 4 03/13/22 08:35 98 Oxymask 4 03/13/22 08:28 98 Oxymask 4 03/13/22 08:10 98 Nasal Cannula 2 03/13/22 07:58 97 2 03/13/22 07:45 Nasal Cannula 2 PG Care Time/CCT Total # of Minutes Spent Total Time Spent with Patient: Total time spent is greater than 50% in coordination of care (as documented) at patient's floor/unit and/or counseling patient: Coding Level of Care Code 29747 Subseq Hosp Care Lvl 2 Diagnoses Pneumonia of both upper lobes J18.9 Dyspnea on exertion R06.09 Hypoxia R09.02 ESR raised R70.0
[2022-03-13] MEDS: methylPREDNISolone 40 MG in SYRINGE 0 ML IV SCH ×2 (10:21→20:23)
[2022-03-13] MEDS: ALBUT/IPRATROP 3MG/0.5MG NEB 3 ML VIAL NEB SCH ×3 (11:07→19:17)
--- NOTE | 2022-03-13 13:35 | XCELERA ---
[id number]
[2022-03-13 13:53] LABS: Eosinophil Body Fluid Man 3 %; Fluid Mono/Macrophage 80 %; Lymphocyte Body Fluid Man 9 %; Neutrophil Body Fluid Man 8 %
[2022-03-13 13:57] LABS: Lymphocyte Body Fluid Man 8 %; Neutrophil Body Fluid Man 13 %
[2022-03-13 13:58] LABS: Eosinophil Body Fluid Man 4 %; Fluid Mono/Macrophage 75 %
[2022-03-13] MEDS: ENOXAPARIN INJ 40 MG/0.4 ML SYR SQ SCH (17:41)
[2022-03-13] MEDS: SODIUM CHLOR 7% 4 ML NEB NEB SCH (19:17)
--- NOTE | 2022-03-13 20:15 | Hospitalist Progress Note ---
Date of Service March 13, 2022 Assessment & Plan (1) Dyspnea on exertion: Plan: Patient presents with a week of dyspnea with prodrome prior to this- completed 5 day course of Azithromycin. DDX: Bacterial vs. Viral vs. Underlying Lung Disease (fibrosis/ILD) vs. other - COVID tests negative x3, respiratory biofire negative, WBC negative, PCT negative, afebrile - continue with Rocephin IV daily - Albuterol scheduled for 24 hours - Flutter valve - stopped Decadron - not chronically immuno suppressed- consider PJP PCR - interlobar thickening noted in 2010 in the bases - Appreciate pulmonary assistance, bronchoscopy 03/13/22, inflammation seen, steroids stared, samples sent (2) Hypoxia: Plan: As above- on 2LNC Negative for PE symptomatic treatment as above (3) Esophageal reflux: Plan: Continue PPI (4) Hyperlipidemia: Plan: Continue fenofibrate Continue Zetia (5) HTN, goal below 140/90: Plan: Continue Lisinopril Continue Metoprolol Admission and Anticipated Discharge Date Admission Date: March 10, 2022 Subjective Bronchoscopy performed today. Patient tolerated well. He endorses dry cough. No fevers or chills. Still has shortness of breath with minimal exertion. Started on steroids, bid by pulmonary med Review of Systems Review of Systems: Mild distress and fatigue no headache, no visual changes no speech or swallowing issues no chest pain, pressure or palpitations shortness of breath,non productive cough or wheezes no abdominal pain, nausea or vomiting, diarrhea or constipation no dysuria, hematuria or frequency no focal joint pain or swelling no back pain, CVA tenderness or radicular pain no bruising, bleeding or rashes no focal signs of weakness or numbness or altered sensation no complaints of anxiety or depression.. Physical Exam Physical Exam: The patient appeared well nourished and normally developed. Vital signs as documented. Head exam is normocephalic atraumatic Neck is without JVD, thyromegaly, or carotid bruits. Lungs are with coarse breath sounds in all lung [place] Cardiac exam, Rhythm is regular.. No murmurs, rubs or gallops. Abdominal exam reveals normal bowel sounds, soft non tender, no masses Extremities are nonedematous and both pedal pulses are present Neurologic exam is alert and oriented, no focal loss of strength or sensation Skin is without bruises or rashes Psychologically is without concerns for anxiety or depression.. Results & Data Results & Data ([facility]) Vital Signs (Past 12 Hours) Vital Signs Temp Pulse Pulse Pulse Resp BP BP 03/13/22 19:58 70 18 03/13/22 17:29 98.6 F 91 H 16 105/71 03/13/22 14:32 75 18 03/13/22 13:26 98.4 F 85 16 109/73 03/13/22 12:10 03/13/22 12:02 98.1 F 80 19 112/71 03/13/22 11:27 97.5 F L 68 16 106/72 03/13/22 11:07 69 18 03/13/22 10:50 97.9 F 59 L 16 101/68 03/13/22 10:18 97.5 F L 62 16 91/60 L 03/13/22 09:32 97.7 F 60 16 96/58 L 03/13/22 08:45 03/13/22 09:17 97.7 F 67 16 93/55 L 03/13/22 09:02 97.7 F 71 72 14 94/59 L 03/13/22 09:02 76 16 95/60 L 03/13/22 08:57 75 16 97/62 L 03/13/22 08:55 69 16 91/55 L 03/13/22 08:50 65 16 98/67 L 03/13/22 08:45 66 16 99/54 L 03/13/22 08:40 64 16 108/66 03/13/22 08:35 62 16 110/63 03/13/22 08:28 59 L 16 115/62 Pulse Ox O2 Del Method O2 Flow Rate 03/13/22 19:58 95 Room Air 03/13/22 17:29 94 Room Air 03/13/22 14:32 92 Room Air 03/13/22 13:26 92 Room Air 03/13/22 12:10 95 Room Air 03/13/22 12:02 99 Nasal Cannula 2 03/13/22 11:27 100 2 03/13/22 11:07 96 Nasal Cannula 2 03/13/22 10:50 100 2 03/13/22 10:18 98 Nasal Cannula 2 03/13/22 09:32 96 Nasal Cannula 2 03/13/22 08:45 Oxymask 03/13/22 09:17 98 Oxymask 4 03/13/22 09:02 98 Oxymask 4 03/13/22 09:02 94 Oxymask 9 03/13/22 08:57 98 Oxymask 15 03/13/22 08:55 98 Oxymask 15 03/13/22 08:50 94 Oxymask 15 03/13/22 08:45 92 Oxymask 15 03/13/22 08:40 100 Oxymask 4 03/13/22 08:35 98 Oxymask 4 03/13/22 08:28 98 Oxymask 4 PG Care Time/CCT Total # of Minutes Spent Total Time Spent with Patient: Total time spent is greater than 50% in coordination of care (as documented) at patient's floor/unit and/or counseling patient: Coding Level of Care Code 40615 Subseq Hosp Care Lvl 2 Diagnoses Dyspnea on exertion R06.09 Hypoxia R09.02 Esophageal reflux K21.9 Hyperlipidemia E78.5 HTN, goal below 140/90 I10
[2022-03-13] MEDS: TAMSULOSIN HCL 0.4 MG CAP PO SCH (20:23)
[2022-03-13] MEDS: MELATONIN 3 MG TAB PO PRN (21:47)
[2022-03-14] MEDS: ALBUT/IPRATROP 3MG/0.5MG NEB 3 ML VIAL NEB SCH ×3 (07:12→15:06)
[2022-03-14] MEDS: SODIUM CHLOR 7% 4 ML NEB NEB SCH (07:12)
[2022-03-14] MEDS ORDERED: predniSONE 20 MG TAB PO SCH (09:00)
[2022-03-14] MEDS: LORATADINE 10 MG TAB PO SCH (09:54)
[2022-03-14] MEDS: EZETIMIBE 10 MG TABLET PO SCH (09:57)
[2022-03-14] MEDS: lisinopril 10 MG TAB PO SCH (09:58)
[2022-03-14] MEDS: METOPROLOL TARTRATE 25 MG TAB PO SCH (09:58)
[2022-03-14] MEDS: SENNA 8.6 MG TAB PO SCH (09:59)
[2022-03-14] MEDS: cefTRIAXone SODIUM 2,000 MG in DEXTROSE 5% 50 ML IV SCH (10:03)
--- NOTE | 2022-03-14 15:33 | Pulmonology Progress Note ---
Date of Service March 14, 2022 Assessment & Plan (1) Idiopathic interstitial pneumonia: Plan: Bronchoscopy performed yesterday and patient tolerated well. Cell counts not particularly inflammatory. ESR was elevated earlier in this hospital admission. We will follow-up rheumatologic labs as an outpatient. Cytology from brushings and BAL unrevealing. No malignancy seen. Follow-up cultures as an outpatient. Continue prednisone taper over the course of 2 weeks. Pro BNP negative. Echo without evidence of reduced ejection fraction. Differential is broad including but not limited to acute hypersensitivity pneumonitis, subacute hypertensively pneumonitis, atypical presentation of organizing pneumonia, acute cellular NSIP versus other. He has an appointment scheduled with me later this month. (2) Hypoxia: Plan: Secondary to the above process. Patient will require supplemental oxygen at home as this is a medical necessity to maintain saturations above 88%. (3) Dyspnea on exertion: Plan: Improving. Will obtain PFTs as an outpatient once recovered from the acute phase. Admission and Anticipated Discharge Date Admission Date: March 10, 2022 Subjective Patient feeling much better today and able to ambulate about the hallways. He is eager for discharge. He is going to require supplemental oxygen upon discharge. Cough is minimal. No fevers. Tolerating diet. Discussed with bed side nurse, RT and hospitalist. Review of Systems Review of Systems: All systems reviewed & are unremarkable except as noted in HPI & below Physical Exam Physical Exam: Constitutional: Patient appears to be of their stated age. Patient is in no apparent distress. Patient is well-developed. Eyes: Pupils are equal round and reactive to light. Conjunctivae are normal. Anicteric sclera. Ears nose, mouth and throat: Deferred. Neck: Trachea is midline. Visual inspection is normal. Respiratory: Clear to auscultation bilaterally. No use of accessory muscles. No significant clubbing noted. Cardiovascular: Regular rate and rhythm. No murmurs. No edema. Gastrointestinal: Normal bowel sounds, soft, nontender and nondistended. No hepatosplenomegaly noted. Musculoskeletal: No cyanosis. Patient is able to move all extremities. Skin: No rashes, warm dry and intact. Neurologic: No obvious focal neurological deficits seen. Psychiatric: Alert and oriented x3 with a euthymic affect. Results & Data Results & Data ([facility]) Vital Signs (Past 12 Hours) Vital Signs Temp Pulse Pulse Pulse Pulse Pulse Pulse 03/14/22 15:07 78 03/14/22 12:21 105 H 100 H 107 H 88 100 H 03/14/22 07:50 03/14/22 11:14 100 H 03/14/22 09:52 86 03/14/22 07:44 36.4 C L 83 03/14/22 07:12 77 Resp Resp Resp Resp Resp BP BP 03/14/22 15:07 18 03/14/22 12:21 22 22 18 16 03/14/22 07:50 03/14/22 11:14 24 03/14/22 09:52 118/76 03/14/22 07:44 18 101/59 L 03/14/22 07:12 16 Pulse Ox Pulse Ox Pulse Ox Pulse Ox Pulse Ox Pulse Ox O2 Del Method 03/14/22 15:07 93 Nasal Cannula 03/14/22 12:21 85 L 92 86 L 90 90 03/14/22 07:50 Room Air 03/14/22 11:14 84 L Room Air 03/14/22 09:52 03/14/22 07:44 95 Room Air 03/14/22 07:12 97 Nasal Cannula O2 Flow Rate O2 Flow Rate O2 Flow Rate 03/14/22 15:07 3 03/14/22 12:21 2 3 03/14/22 07:50 03/14/22 11:14 03/14/22 09:52 03/14/22 07:44 03/14/22 07:12 2 PG Care Time/CCT Total # of Minutes Spent Total Time Spent with Patient: Total time spent is greater than 50% in coordination of care (as documented) at patient's floor/unit and/or counseling patient: Coding Level of Care Code 57903 Subseq Hosp Care Lvl 2 Diagnoses Idiopathic interstitial pneumonia J84.111 Hypoxia R09.02 Dyspnea on exertion R06.09
--- NOTE | 2022-03-14 18:07 | Discharge Summary ---
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 Patient presents to the [facility] today for dyspnea with exertion since . He seen his PCP on 03/06/22 and was given a course of oral azithromycin. He completed this course and since his symptoms persisted he came to the [facility]. The patient was noted to be hypoxci to 79 and 85% post ambulation on room air. He was given 10mg of IV Decadron, CXR, CTA of the chest that was negative for PE, and given dose of Cefepime. He had a respiratory viral panel and COVID test obtained that was negative. Hospitalist was consulted for admission. Patient states that he and his went up to [place] 01 of March to watch tennis, during that time he developed dyspnea walking about 1/2 a block, this was not associated with any chest pain or cough, this did not get any better so he and his came back to the area on the 04 of March. He and his went and got tested for COVID. His test was negative and his was Positive. He then went and seen his PCP as above. He endorses having another COVID test at the end of last week which was negative. He has been self isolating at home and sleeping in a different room as well as he and his masking at home. Prior to his symptoms on 01 March he endorses about 4-5 days prior to this feeling increase in fatigue and bodyaches- he tested at home for COVID at that time and was also Negative. He also endorses chills in the evening over the weekend that has resolved. CTA of the chest with ground glass opacities in intralobular thickening of the upper lobes bilaterally. Patient reports that he used to smoke and quit about 40 years ago and is without any toxin exposure that he can remember in the past. Procalcitonin and CRP will be sent and will continue pulmonary coverage with Rocephin. Will consult pulmonary for further evaluation and assistance. COVID/FLU/RSV- respiratory biofire: NEGATIVE Principal Diagnosis hypoxic respiratory failure Discharge Exam The patient appeared stable Vital signs as documented. Lungs are clear to auscultation and appear unlabored Cardiac exam, Rhythm is regular.. No murmurs, rubs or gallops. Abdominal exam reveals normal bowel sounds, soft non tender, no masses Extremities are nonedematous and both pedal pulses are normal. Neurologic exam is alert and oriented, no focal loss of strength or sensation Skin is without bruises or rashes Psychologically is without concerns for anxiety or depression. Discharge Data Allergies Allergy/AdvReac Type Severity Reaction Status Date / Time house dust mite Allergy Unknown Sneezing Verified 03/10/22 16:53 atorvastatin AdvReac Intermediate MUSCLE Verified 03/10/22 16:53 CRAMPS choline fenofibrate AdvReac Intermediate MUSCLE Verified 03/10/22 16:53 CRAMPS spironolactone AdvReac Intermediate MUSCLE Verified 03/10/22 16:53 CRAMPS Penicillins AdvReac Unknown AVOIDS Verified 03/10/22 16:53 HIS FATHER HIGHLY ALLERGIC pollen Allergy Unknown Sneezing Uncoded 03/10/22 16:53 Consultations 03/10/22 17:35 ED Decision to Admit Stat 03/10/22 20:12 Consult Pulmonology Routine Procedures Performed Operation Date: 03/13/22 08:30 Actual Procedures p Bronchoscopy - Sundeep Case MD Ordered Studies 03/10/22 15:05 CT angio chest PE protocol Stat Hospital Course (1) Dyspnea on exertion: Patient presents with a week of dyspnea with prodrome prior to this- completed 5 day course of Azithromycin. DDX: Bacterial vs. Viral vs. Underlying Lung Disease (fibrosis/ILD) vs. other - COVID tests negative x3, respiratory biofire negative, WBC negative, PCT negative, afebrile - Albuterol scheduled for 24 hours - not chronically immuno suppressed- - interlobar thickening noted in 2010 in the bases - Appreciate pulmonary assistance, bronchoscopy 03/13/22, inflammation seen, steroids stared, samples sent will be home on oxygen 3l with activity and non at rest. steroid taper follow up with Dr So (2) Hypoxia: As above- on 3LNC with exertion Negative for PE symptomatic treatment as above (3) Esophageal reflux: Continue PPI (4) Hyperlipidemia: Continue fenofibrate Continue Zetia (5) HTN, goal below 140/90: Continue Lisinopril Continue Metoprolol Total Time Total Time Spent Total Time Spent (In Minutes): It required greater than 30 minutes to prepare this patient for discharge Discharge Plan Discharge Items Patient Disposition: Home - Self-Care Reason For Visit: DYSPNEA,VIRAL/BACTERIAL PNA Discharge Diagnosis: inflamatory lung disease Activity: Per Instructions section Activity Comment: no intentional exercise Non-emergency contact: Primary Care Provider and Diagnostic Medical Sonographer Call non-emergency contact if: your symptoms worsen Follow-up/Referrals: Jayda Fernando MD [Primary Care Provider] - 03/21/22 10:20 am Sundeep Case MD [Physician] - 04/15/22 12:45 pm Diet: Regular Addtl Attending Provider Instructions: You given oxygen to use at home to be used when you are exerting yourself or moving about. You can also use it if you feel short of breath at rest. We recommend you have no intentional exercise but you can do activities of typical daily life such as going shopping etc. while wearing her oxygen. You are given a tapering dose of prednisone therapy to reduce the inflammation in your lungs. If this causes some mild stomach upset please try to eat it with food or you may also institute some lcie-met-yjwujer antiacid medication such as famotidine Please be sure you contact your primary care visit physician to update him on your medication changes and also have a follow-up appointment with Dr. So Pending Studies at Discharge: Yes Studies:: bronchoscopy samples Stand-Alone Forms: My [facility] [employer], Smoking Cessation Medications and DC Order Prescriptions: New prednisone 10 mg tablet 10 mg PO DAILY Qty: 40 0RF Rx Instructions: 4 a day x 4 d then 3 a day x 4 d then 2 a day x 4 d then one a day (DME) Oxygen Home Liters Per Minute See Rx Instructions .ROUTE Qty: 3 0RF Rx Instructions: use with exertion or actitivy Continued metoprolol tartrate 25 mg tablet See Rx Instructions PO BID Qty: 270 1RF Rx Instructions: Take 1 pill in am and 2 pills in pm PO; fenofibrate nanocrystallized 145 mg tablet 145 mg PO DAILY Qty: 90 1RF tamsulosin 0.4 mg capsule 0.4 mg PO QPM Qty: 90 1RF lisinopril 10 mg tablet 10 mg PO DAILY Qty: 90 2RF loratadine [Claritin] 10 mg tablet 10 mg PO DAILY Qty: 30 0RF multivitamin Tablet 1 tab PO DAILY hydrocortisone [Proctosol HC] 2.5 % cream with perineal applicator 1 applic IN DAILY PRN (Reason: itching) Qty: 30 1RF Rx Instructions: use sparingly, do not use for longer than 1 week ezetimibe 10 mg tablet 10 mg PO DAILY Rx Instructions: TAKE 1 TABLET BY MOUTH EVERY DAY Discontinued azithromycin 250 mg tablet See Rx Instructions PO .COMPLEX Qty: 6 0RF Rx Instructions: For 250 mg dose pack: take 500 mg today (day 1), then 250 mg for 4 days (days 2-5) PO Discharge Orders: Discharge Order (Routine); Ordered 03/14/22 Ordered By: Diego Krishnan/Other Patient Handouts: ED Shortness of Breath (Dyspnea) Admission Data Admit Date/Time: 03/10/22 18:27 Attending Provider: Diego Kuhn Admit Provider: Dieter Zhang Primary Care Provider: Jayda Fernando Other Providers: Dieter Zhang ; Sundeep Case Other Interventions: Discharge Summary Assessment (RN) Last Done: 03/14/22 15:14 Coding Level of Care Code D/C DAY MANAGEMENT >30 MINS Diagnoses Dyspnea on exertion R06.09 Hypoxia R09.02 Esophageal reflux K21.9 Hyperlipidemia E78.5 HTN, goal below 140/90 I10
[2022-03-17 22:41] LABS: Anti Cardiolipin Ab IgG <2.0 GPL-U/mL; Anti Cardiolipin Ab IgM <2.0 MPL-U/mL; Anti Nuclear Antibody Screen NEGATIVE (NEGATIVE); Anti-Cardiolipin Ab IgA <2.0 APL-U/mL; Anti-Centromere Ab <1.0 NEG AI (<1.0 NEG); Anti-SS-A <1.0 NEG AI (<1.0 NEG); Anti-SS-B <1.0 NEG AI (<1.0 NEG); Chromatin Antibody <1.0 NEG AI (<1.0 NEG); Complement C3 207 mg/dL (82-185); DNA ds Crithidia NEGATIVE (NEGATIVE); Microsomal Ab <1 IU/mL (<9); RNP Antibody <1.0 NEG AI (<1.0 NEG); Rheumatoid Factor <14 IU/mL (<14); Scleroderma Anti Scl-70 Ab <1.0 NEG AI (<1.0 NEG); Sm Antibody <1.0 NEG AI (<1.0 NEG)
--- NOTE | 2022-03-21 14:55 | Coding Query ---
CODING QUERY To promote full compliance with coding requirements relating to patient care, provider participation is requested in all cases of sales supervisor uncertainty. Please assist us with the question(s) below: Coding Question(s): Patient admitted with acute hypoxic respiratory falure. Pulmonary consulted : Idiopathic Interstitial Pneumonia. Discharge summary documented hypoxic respiratory failure. Please document , if known or suspected, the etiology of the respiratory failure. * Bronchoscopy with BAL done. Thanks for your help! Chase Serrano [facility] Physician's Response(s): idiopathic pulmonary pneumonia Principal Diagnosis: "that condition established after study, to be chiefly responsible for occasioning the admission of the patient to the hospital for care." Co-Existing Principal Diagnosis: "when two or more diagnoses equally meet the criteria for principal diagnosis as determined by the circumstances of admission, diagnostic work up, and/or therapy provided, and the Alphabetic Index, Tabular List, or another coding guideline does not provide sequencing direction, any one of the diagnoses may be sequenced first." "When the physician has documented what appears to be a current diagnosis in the body of the record, but has not included the diagnosis in the final diagnostic statement, the physician should be asked whether the diagnosis should be added." (Source Coding [facility] 2 QTR90. p3-4) SOLOMON
[2022-03-24 15:12] LABS: Legionella Culture Source BRONCHIAL WASH
== END 2022-03-14 16:25 | disposition home or self-care (01) | DRG 197 ==
LOC: ED 14:24 → 3E 18:27 → SUATTDRO 18:27 → 3E 19:37